=== PATIENT | male | born 1935 | race Caucasian/White ===

== ENCOUNTER 2018-06-08 12:37 | Outpatient (CLI) | payer MEDICARE, BC ==
[2018-06-08 14:10] LABS: Actual Bicarbonate (HCO3a) 34.3 mEq/L (22-28); Analyzer IN Cardio OR; Base Excess (BEa) 7.8 mEq/L (-2.0 to +3.0); CO2 Tension 57.7 mmHg (35.0-45.0); Calcium, Ionized 1.14 mmol/L (1.12-1.30); Hemoglobin (Hb) 11.3 g/dL (14.0-18.0); pH, Arterial 7.39 (7.35-7.45)
[2018-06-08 14:17] LABS: O2 Tension (PaO2) 50.4 mmHg (> 60.0)
[2018-06-08 14:18] LABS: ALV-art Gradient 77.115 (0-20)
== END 2018-06-08 12:38 | disposition home or self-care (01) ==
LOC: CP 12:37
PROVIDERS: ATTEND Internal Medicine
DX: I26.99 Other pulmonary embolism without acute cor pulmonale (principal)
CPT/HCPCS: 82805

== ENCOUNTER 2018-06-13 20:07 | Emergency (ER) | payer MEDICARE, BC ==
--- NOTE | 2018-06-13 21:21 | RAD ---
RIGHT SHOULDER THREE VIEWS: HISTORY: Fall. Pain. COMPARISON: None. FINDINGS: There is mild bone demineralization of the proximal left humerus. No bony fracture. No periosteal r eaction. IMPRESSION: Irregular appearance of the proximal left humerus. There appear to be patchy areas of lucency. Dedi cated left humeral radiograph is recommended. POS: [facility]
--- NOTE | 2018-06-13 21:59 | CT ---
HEAD CT WITHOUT CONTRAST: HISTORY: The patient fell. COMPARISON: 12/23/2003 FINDINGS: No parenchymal hemorrhage. No extraaxial hematoma. No midline shift. the basilar cisterns are maki nt. Age appropriate atrophy. Cortical post white matter differentiation is preserved. The ventricles and sulci are patent and symmetric. Adequate aeration of the sinuses and mastoid air cells. The calvarium is intact. Chronic small vessel ischemic changes of the white matter are noted. IMPRESSION: No intracranial posttraumatic sequelae. POS: [facility]
--- NOTE | 2018-06-13 22:20 | CT ---
CT CERVICAL SPINE: HISTORY: Fall. COMPARISON: None. FINDINGS: No craniocervical dislocation. The lateral masses of C1 and C2, as well as the facets, have appropri ate articulation. Soft tissue neck structures are unremarkable. There is atherosclerosis of the left and right common carotid arteries. The upper mediastinum is unremarkable. There appear to be extensive chronic changes in the visualize d lung apices. Emphysematous changes are identified. There is a nonspecific, well circumscribed, ro und nodule in the right upper lobe, measuring 0.7 x 0.8 cm. There are varying degrees of central canal stenosis and foraminal narrowing on the basis of degenerat michael change. There is at least moderate to severe central canal stenosis throughout multiple levels, in terms of the neural foramina. There is right greater than left facet hypertrophy. At least mild to moderate central canal stenosis on the basis of degenerative change. Evaluation is limited by elvis hnique. There is no prevertebral soft tissue swelling. Cervical spine vertebral body height is maintained. There is no definite fracture. Nonspecific hypo dense/lucent focus involving the anterior left aspect of the T1 vertebral body. The lesion measures 0.8 x 0.9 cm. There is diffuse bone demineralization. IMPRESSION: 1. No fracture. 2. Degenerative changes with varying degrees of central canal stenosis and foraminal narrowing, as a elise. 3. Possible lucent focus involving the anterior left aspect of T1. 4. Diffuse bone demineralization. POS: [facility]
--- NOTE | 2018-06-13 22:21 | RAD ---
TWO VIEW CHEST: INDICATIONS: Fall with chest injury. Pain. FINDINGS: There is a pleural-based density at the inferior right chest. Mild blunting of the left costophrenic sulcus is present. There is mild prominence of the cardiac silhouette. Post surgical changes of th e mediastinum and left-sided AICD are again noted. IMPRESSION: 1. Mild to moderate right pleural fluid. 2. Grossly stable pleural-based irregularity at the inferior left chest. 3. There is no discrete pneumothorax. POS: [facility]
--- NOTE | 2018-06-13 22:34 | RAD ---
LEFT HUMERUS TWO VIEWS: INDICATIONS: Injury. Fall. Pain. FINDINGS: There is scattered degenerative change without fracture or dislocation. IMPRESSION: No acute fracture of the left humerus. POS: [facility]
--- NOTE | 2018-06-14 | RAD ---
LEFT SCAPULA SERIES: INDICATIONS: Pain related to fall and injury. TECHNIQUE: Three views provided. FINDINGS: The scapula is not well assessed, as portions are obscured by a cardiac pacing battery pack. Where v isualized, there is no significant fracture displacement seen. There is degenerative change at the g lenohumeral joint. Minimal cortical irregularity without significant displacement is seen at the low er aspect of the scapula. IMPRESSION: No evidence of a significantly displaced fracture. There is minimal cortical irregularity at the inf erior aspect of the left scapula, nonspecific. POS: [facility]
== END 2018-06-13 23:12 | disposition home or self-care (01) ==
LOC: ERS 20:07
DX: S40.212A Abrasion of left shoulder, initial encounter (principal); S20.412A Abrasion of left back wall of thorax, initial encounter; I50.9 Heart failure, unspecified; J44.9 Chronic obstructive pulmonary disease, unspecified; Z87.891 Personal history of nicotine dependence; Z79.899 Other long term (current) drug therapy; Z79.01 Long term (current) use of anticoagulants; W18.30XA Fall on same level, unspecified, initial encounter
CPT/HCPCS: 70450; 71046; 72125

== ENCOUNTER 2018-06-16 13:50 | Inpatient (IN) | payer MEDICARE, BC ==
[~2018-06-16 13:50] MED LIST: ISOVUE-370 76%-LOCM 1 ML ONE
[2018-06-16 14:41] LABS: #Eosinphils 0.1 thou/uL (0.0-0.7); #Lymphocytes 0.8 thou/uL (1.20-3.40); #Monocytes 0.5 thou/uL (0.11-0.59); #Neutrophils 4.9 thou/uL (1.40-6.50); %Basophils 0.3 % (0.0-1.0); %Eosinophils 0.8 % (0.0-10.0); %Lymphocytes 12.9 % (21.0-51.0); %Monocytes 8.5 % (0.0-10.0); %Neutrophils 77.5 % (42.0-75.0); Hemoglobin 9.2 g/dL (14.0-18.0); Mean Corpuscular HGB CONC 30.5 g/dL (32.0-36.0); Mean Corpuscular Hemoglobin 29.7 pg (27.0-31.0); Mean Corpuscular Volume 97.2 fL (78.0-98.0); Mean Platelet Volume 8.6 fL (7.4-10.4); Platelet Count 185 thou/uL (130-400); White Blood Cell (WBC) Count 6.3 thou/uL (4.8-10.8)
[2018-06-16] MEDS ORDERED: diphenhydrAMINE 50 MG CAP ONE (14:45)
--- NOTE | 2018-06-16 14:58 | RAD ---
PORTABLE CHEST: Date: 06/16/18 PROVIDED CLINICAL HISTORY: Dyspnea. FINDINGS: Comparison with 06/13/18. Cardiac silhouette remains enlarged. Elevation of the right hemidiaphragm persists. Vascular calcific ation, median sternotomy change, and left subclavian cardiac pacing device are redemonstrated. No shannon dence for pneumothorax. No definite focal consolidation. IMPRESSION: Stable radiographic appearance of the chest. POS: [facility]
[2018-06-16 15:01] LABS: ALT (SGPT) 9 U/L (8-55); AST (SGOT) 17 U/L (5-34); Alkaline Phosphatase 73 U/L (40-150); BUN (Urea Nitrogen) 50 mg/dL (8.4-25.7); Bilirubin, Total 1.3 mg/dL (0.2-1.2); Calc. Creatinine Clearance 0 mL/min (70-130); Calcium 9.5 mg/dL (7.8-10.44); Estimated GFR-MDRD 35; Globulin 3.5 g/dL (2.4-3.5); Glucose 139 mg/dL (83-110); Magnesium 2.4 mg/dL (1.6-2.6); Protein, Total 7.5 g/dL (5.8-8.1)
[2018-06-16 15:05] LABS: Troponin I 0.055 ng/mL (< 0.028)
[2018-06-16 15:11] LABS: Anion Gap 15 mmol/L (10-20); Carbon Dioxide 35 mmol/L (23-31); Chloride 93 mmol/L (98-107); Potassium 5.1 mmol/L (3.5-5.1); Sodium 138 mmol/L (136-145)
--- NOTE | 2018-06-16 16:19 | CT ---
CT ANGIOGRAM OF THE CHEST: HISTORY: Dyspnea. Increased weakness. COMPARISON: None. TECHNIQUE: CT angiogram of the chest is performed in the axial plane. Three-dimensional reformatted images were submitted for interpretation. FINDINGS: There are nonspecific bilateral soft tissue neck lymph nodes. No mediastinal mass, lymphadenopathy, or hematoma. Heart size is enlarged. No significant pericardi al fluid. There are coronary artery calcifications. Atherosclerosis of a nonaneurysmal aorta. Reflux of contrast suggests right heard failure. The visualized upper solid organs are grossly unrem arkable. Hypodensity adjacent to the right hepatic lobe of the liver may be associated with a right kidney, evaluation is incomplete. The trachea and central bronchi are patent. Emphysematous changes in both upper lobes. Areas of sca r and atelectasis in both upper lobes. Nonspecific nodule on the lateral aspect of the right upper l obe measuring 0.6 x 0.5 cm. Dependent atelectatic changes. Additional atelectasis in the middle lob e and right lower lobe. There is mild elevation of the right hemidiaphragm. There is a right-sided pleural effusion. There is also evidence of perihepatic fluid. Adequate contrast opacification of the pulmonary arterial system to the level of the segmental arteri es. No filling defect to suggest thromboembolism. No lytic or blastic lesions in the osseous structures. IMPRESSION: 1. Lung parenchymal changes as described above. Emphysema involves both upper lobes. 2. A 6 mm nodule in the right upper lobe. Depending on patient's risk fractures, followup imaging i n 6-12 months is recommended. POS: [facility]
[2018-06-16] MEDS ORDERED: Furosemide 40 MG/4 ML VIAL ONE (17:10)
[2018-06-16] MEDS ORDERED: Guaifenesin DM 100-10/5 ML UDCUP PO PRN (18:25)
[2018-06-16] MEDS ORDERED: Acetaminophen 325 MG TAB PO PRN (18:25)
[2018-06-16 19:53] VITALS: BMI 28.3
--- NOTE | 2018-06-16 20:11 | HP ---
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 HISTORY OF PRESENT ILLNESS: Please note majority of this history is obtained by talking to patient's who is here at bedside as patient does not recollect anything. He wants me to talk to his to get all the information. He is currently mildly short of breath. The patient was hospitalized in April of this year at [facility] for CHF exacerbation. He was there for nearly 8 days. The patient also likely had a VQ scan and was suspected to have a PE and was started on Xarelto then. From there, he went to rehab for 10 days and then went home with PT and speech therapy. On Wednesday, he had a fall and had come to the emergency room and has had trauma protocol imaging done with no fractures and was discharged home. From then on, he has become more deconditioned. Home health nurse tried to make him walk today and his saturations dropped down to 50%. All of this concerned them and made it to the emergency room here. He has no complaints of chest pain at present. No complaints of palpitations or PND. The patient apparently has chronic edema in lower extremities from at least 4-5 years or so. He has had IVC filter placed in 07/[address] Landers. PAST MEDICAL AND SURGICAL HISTORY: History of CHF, COPD, emphysema, chronic dysphagia, defibrillator pacemaker, history of renal cell cancer with right nephrectomy done at [facility], this was done in 07/2017. Prior to surgery, he had a round of chemo, which did not seem to help him. TURP, cataract surgery , knee surgery, cholecystectomy, has had a CABG for 4-vessel disease done 12 years back. Has had IVC filter placed in 07/2017. PRIMARY INDUSTRIAL ORGANIZATIONAL PSYCHOLOGIST: Bahman Arellano M.D. PRIMARY UROLOGIST: Camilo Ledesma M.D. CURRENT MEDICATIONS: The patient is on atorvastatin 10 mg p.o. daily, K-Dur 10 mEq p.o. daily, aspirin 81 mg p.o. daily, Niacin 500 mg p.o. daily, magnesium oxide daily, Xarelto 15 mg daily, metoprolol extended release 25 mg daily, Lasix 40 mg twice daily, Ultram p.r.n. for pain. ALLERGIES: IODINE. PERSONAL HISTORY: Quit smoking 27 years ago, was a heavy smoker before that and smoked for 30 years. Does not abuse alcohol or drugs. FAMILY HISTORY: Mother in her 80s. Father in his 70s. CODE STATUS: DNR. This was confirmed with at bedside, who is also power of assistant county attorney for him. REVIEW OF SYSTEMS: The following complete review of systems was negative, unless otherwise mentioned in the HPI or below: Constitutional: Weight loss or gain, ability to conduct usual activities. Skin: Rash, itching. Eyes: Double vision, pain. ENT/Mouth: Nose bleeding, neck stiffness, pain, tenderness. Cardiovascular: Palpitations, dyspnea on exertion, orthopnea. Respiratory: Shortness of breath, wheezing, cough, hemoptysis, fever or night sweats. Gastrointestinal: Poor appetite, abdominal pain, heartburn, nausea, vomiting, constipation, or diarrhea. Genitourinary: Urgency, frequency, dysuria, nocturia. Musculoskeletal: Pain, swelling. Neurologic/Psychiatric: Anxiety, depression. Allergy/Immunologic: Skin rash, bleeding tendency. PHYSICAL EXAMINATION: GENERAL: The patient is an 82-year-old male who is currently not in any acute distress. VITAL SIGNS: Blood pressure 104/60, pulse 76 per minute, respiratory rate 20 per minute, temperature 98.7 degrees Fahrenheit, saturating 86% on 3 liters oxygen on arrival. Currently, he is saturating 93% on 3 liters. He has received Lasix 40 mg IV in the ER. NECK: Supple. There is mild elevation in JVD. HEENT: Eyes: Extraocular muscles intact. Pupils reacting to light. Oral cavity mucous membranes are dry. No exudates or congestion. CARDIOVASCULAR: S1, S2 heard. Regular rhythm. RESPIRATORY: Air entry 1+ bilateral. Scattered rales plus bilateral. ABDOMEN: Soft, bowel sounds heard. No tenderness, rigidity or guarding. There is abdominal wall edema in the lower quadrants extending all the way to the toes. EXTREMITIES: Massive peripheral edema. Has a compression sleeve. No calf tenderness. VASCULAR: Peripheral pulses 1+ bilateral. No ischemic ulcerations or gangrene. CENTRAL NERVOUS SYSTEM: The patient is awake and alert, but is not fully oriented. PSYCHIATRIC: No obvious hallucinations or delusions. LABORATORY AND X-RAY FINDINGS: White count of 6, H&H 9 and 30, platelet count 185, MCV is 97 with 77% neutrophils. Serum bicarbonate 35, BUN 50, creatinine 1.8, serum glucose 139, total bilirubin 1.3. Troponin I 0.05. BNP is 1026, albumin is 4.0. CT angio chest done shows no obvious PE up to the level of segmental arteries. Emphysema seen in both upper lobes. CLINICAL IMPRESSION AND PLAN: The patient will be admitted to telemetry for acute congestive heart failure exacerbation, chronic obstructive pulmonary disease exacerbation, acute kidney injury, acute hypoxic respiratory failure. He will be on Lasix 40 mg IV q.12 hourly along with aspirin, Lipitor, small dose of Coreg twice daily, DuoNebs, prednisone 40 mg daily. We will continue Xarelto 20 mg daily. We will obtain ultrasound of the inferior vena cava to see if the IVC filter is clogged up with lower extremity edema. Echo with 2D Doppler for LV function. We will also obtain a TSH in the morning. His albumin is 4 and his edema is unlikely secondary to hypoalbuminemia. His overall prognosis is guarded. I have given complete updates to patient's at bedside. [facility]
[2018-06-16] MEDS: Atorvastatin Calcium 10 MG TAB PO SCH (21:23)
[2018-06-16] MEDS: Niacin 500 MG TAB PO SCH (21:23)
[2018-06-16] MEDS: Famotidine 20 MG TAB PO SCH (21:24)
[2018-06-16] MEDS: Carvedilol 3.125 MG TAB PO SCH (21:24)
[2018-06-17 05:43] LABS: BUN (Urea Nitrogen) 49 mg/dL (8.4-25.7); Calc. Creatinine Clearance 48 mL/min (70-130); Calcium 9.3 mg/dL (7.8-10.44); Estimated GFR-MDRD 43; Glucose 103 mg/dL (83-110)
[2018-06-17 05:47] LABS: #Eosinphils 0.1 thou/uL (0.0-0.7); #Lymphocytes 0.8 thou/uL (1.20-3.40); #Monocytes 0.6 thou/uL (0.11-0.59); #Neutrophils 3.9 thou/uL (1.40-6.50); %Basophils 0.3 % (0.0-1.0); %Eosinophils 1.9 % (0.0-10.0); %Lymphocytes 15.4 % (21.0-51.0); %Monocytes 10.4 % (0.0-10.0); Hemoglobin 8.5 g/dL (14.0-18.0); Mean Corpuscular Hemoglobin 30.2 pg (27.0-31.0); Mean Corpuscular Volume 97.5 fL (78.0-98.0); Platelet Count 154 thou/uL (130-400); RBC Distribution Width 18.7 % (11.5-14.5); Red Blood Cell (RBC) Count 2.82 mill/uL (4.70-6.10); White Blood Cell (WBC) Count 5.4 thou/uL (4.8-10.8)
[2018-06-17 05:52] LABS: Anion Gap 13 mmol/L (10-20); Carbon Dioxide 35 mmol/L (23-31); Chloride 93 mmol/L (98-107); Potassium 4.5 mmol/L (3.5-5.1); Sodium 136 mmol/L (136-145)
[2018-06-17] MEDS: Furosemide 40 MG/4 ML VIAL SLOW IVP SCH ×2 (06:04→13:34)
[2018-06-17] MEDS: predniSONE 20 MG TAB PO SCH (09:16)
[2018-06-17] MEDS: Carvedilol 3.125 MG TAB PO SCH ×2 (09:18→21:38)
--- NOTE | 2018-06-17 10:55 | ULT ---
LIMITED ULTRASOUND IVC: DATE: 06/17/2018. HISTORY: Occlusion of IVC. History of IVC filter. FINDINGS: The mid IVC is obscured due to shadowing from bowel gas. Visualized portions of the proximal as well as lower IVC demonstrate flow on color flow and Doppler evaluation. While the mid IVC is not well s een on sahni scale imaging, color flow evaluation in the expected location of the IVC does demonstrate what appears to be flow in the mid IVC. IMPRESSION: Limited evaluation of the inferior vena cava, but Doppler evaluation as well as color flow evaluation does suggest flow although color flow evaluation was unable to be evaluated involving the mid inferi or vena cava due to shadowing from bowel gas. Sahni scale image is also limited, and thrombus within the inferior vena cava could not be excluded based on this examination. CT with IV contrast would be the better study of choice for evaluation of inferior vena cava thrombus or occlusion. POS: [facility]
--- NOTE | 2018-06-17 11:57 | PDOC.PN ---
- Subjective Encounter Start Date: 06/17/18 Encounter Start Time: 10:15 Subjective: is sitting up, trying to work with PT -: no sob, feels better -: is moving all extremities - Objective Resuscitation Status: Resuscitation Status DNR:Do Not Resuscitate MAR Reviewed: Yes Vital Signs & Weight: Vital Signs (12 hours) Temp Pulse Resp BP BP BP Pulse Ox 06/17/18 10:12 115/55 L 112/56 L 06/17/18 08:00 98.4 F 68 17 121/57 L 93 L 06/17/18 06:22 73 15 94 L 06/17/18 03:41 98.1 F 73 20 105/61 97 06/17/18 00:37 67 14 95 Weight Weight 208 lb 8 oz Result Diagrams: 06/17/18 05:09 06/17/18 05:09 Phys Exam - Physical Examination HEENT: PERRLA, moist MMs Neck: no JVD, supple Respiratory: no wheezing, no rales Cardiovascular: RRR, no significant murmur Gastrointestinal: soft, non-tender, positive bowel sounds Musculoskeletal: pulses present, edema present Neurological: non-focal, moves all 4 limbs Psychiatric: normal affect, A&O x 3 Dx/Plan (1) Acute exacerbation of CHF (congestive heart failure) Code(s): I50.9 - HEART FAILURE, UNSPECIFIED Status: Acute Qualifiers: Heart failure type: unspecified Qualified Code(s): I50.9 - Heart failure, unspecified (2) COPD exacerbation Code(s): J44.1 - CHRONIC OBSTRUCTIVE PULMONARY DISEASE W (ACUTE) EXACERBATION Status: Acute (3) BETO (acute kidney injury) Code(s): N17.9 - ACUTE KIDNEY FAILURE, UNSPECIFIED Status: Acute (4) Lower extremity edema Code(s): R60.0 - LOCALIZED EDEMA Status: Chronic (5) Dyslipidemia Code(s): E78.5 - HYPERLIPIDEMIA, UNSPECIFIED Status: Chronic (6) h/o right nephrectomy Status: Chronic Comment: for renal cancer (7) CAD (coronary artery disease) Code(s): I25.10 - ATHSCL HEART DISEASE OF [place] CORONARY ARTERY W/O ANG PCTRS Status: Chronic Qualifiers: Coronary Disease-Associated Artery/Lesion type: bypass graft [place] vs. transplanted heart: [place] heart Associated angina: without angina Qualified Code(s): I25.810 - Atherosclerosis of coronary artery bypass graft(s) without angina pectoris (8) Physical deconditioning Code(s): R53.81 - OTHER MAL[place]ISE Status: Acute (9) Demand ischemia of myocardium Code(s): I24.8 - OTHER FORMS OF ACUTE ISCHEMIC HEART DISEASE Status: Acute - Plan likely has ivc thrombosis with lower extre edema -: usg ivc not confirmatory for above, had contrast yesterday for another CT -: beto, respiratory failure with hypoxia has improved -: continue xarelto, lasix, aspirin. PT to mobilize as tolerated -: asp, coreg and lipitor. No lupillo/arb's due to beto/ckd? * . Prefer a long zain hose than his compression sleeve. Review of Systems - Medications/Allergies Allergies/Adverse Reactions: Allergies Allergy/AdvReac Type Severity Reaction Status Date / Time Iodinated Contrast- Oral and Allergy Verified 06/17/18 00:42 IV Dye [Iodinated Contrast Media - IV Dye] Medications: Current Medications Acetaminophen (Tylenol) 650 mg PO Q4H PRN PRN Reason: Headache/Fever/Mild Pain (1-3) Albuterol/Ipratropium (Duoneb) 3 ml NEB [id number] [facility] Last Admin: 06/17/18 06:22 Dose: 3 ml Aspirin (Aspirin Chewable) 81 mg PO DAILY [facility] Last Admin: 06/17/18 09:18 Dose: 81 mg Atorvastatin Calcium (Lipitor) 10 mg PO QPM [facility] Last Admin: 06/16/18 21:23 Dose: 10 mg Carvedilol (Coreg) 3.125 mg PO BID [facility] Last Admin: 06/17/18 09:18 Dose: 3.125 mg Famotidine (Pepcid) 20 mg PO QPM [facility] Last Admin: 06/16/18 21:24 Dose: 20 mg Furosemide (Lasix) 40 mg SLOW IVP 0600,1400 [facility] Last Admin: 06/17/18 06:04 Dose: 40 mg Guaifenesin/Dextromethorphan (Robitussin Dm) 15 ml PO Q4H PRN PRN Reason: Cough Niacin (Niacin) 500 mg PO HS [facility] Last Admin: 06/16/18 21:23 Dose: 500 mg Prednisone (Prednisone) 40 mg PO DAILY [facility] Last Admin: 06/17/18 09:16 Dose: 40 mg Rivaroxaban (Xarelto) 20 mg PO 1800 [facility]
--- NOTE | 2018-06-17 12:37 | CON ---
DATE OF CONSULTATION: 06/17/2018 CONSULTING PHYSICIAN: Dr. Pepper REASON FOR CONSULTATION: Evaluation and management of COPD and hypoxemia. HISTORY OF PRESENT ILLNESS: Mr. Gordon is a pleasant 82-year-old male who was brought into the [facility] yesterday with hypoxemia and shortness of breath that have been occurring increasingly over e 2 weeks prior to admission. He states that last week he was sent to the hospital to have a blood g as drawn because he had become increasingly hypoxemic with exertion. He has been on home oxygen for a couple of months. He was hospitalized in [facility] in April for knee replacement surgery, b ut was felt to be in heart failure at that time and his knee surgery was deferred until his heart pato lugina came under control. He was eventually sent to rehab before going home. I do not have records a bout his cardiac status, but from what I can tell he probably has severe congestive heart failure. H luther has difficulty with peripheral edema and apparently does not adhere to fluid restriction at home. The patient smoked quite heavily, but quit about 27 years ago. He has never been told he had COPD in the past, but it is suspected that he probably does. His had set him up an outpatient appointm ent to see Dr. Harris in a couple weeks, but the patient has never seen a entry specialists in the past. PAST MEDICAL HISTORY: 1. Congestive heart failure. 2. Chronic hypoxemia. 3. Renal cell cancer requiring right nephrectomy. 4. Coronary artery disease requiring coronary bypass grafting surgery. 5. Deep venous thrombosis with IVC filter placed in 07/2017. Apparently, he was scheduled to have s urgery and he was felt to high of a bleeding risk to continue on anticoagulation in the perioperative period. PAST SURGICAL HISTORY: 1. Nephrectomy. 2. Defibrillator placement. 3. Coronary artery bypass grafting surgery. 4. TURP. 5. Cholecystectomy. 6. Cataract surgery. MEDICATIONS PRIOR TO ADMISSION: Atorvastatin 10 mg daily, potassium chloride 10 mEq daily, aspirin 8 1 mg daily, niacin 500 mg daily, magnesium oxide daily, Xarelto 15 mg daily, metoprolol 25 mg daily, Lasix 40 mg twice daily, Ultram as needed. ALLERGIES: IODINE. SOCIAL HISTORY: See above. Does not consume alcohol, does not use illicit drugs. 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 REVIEW OF SYSTEMS: He has had difficulty with peripheral edema. Left shoulder pain, shortness of br eath. The remainder of the 12 point review of systems is negative. PHYSICAL EXAMINATION: VITAL SIGNS: Temperature 98.4, pulse 68, respirations 17, O2 sat 93% on 3 liters. GENERAL: He is lying in bed, looks comfortable. HEENT: Pupils are reactive. Sclerae icteric. Oropharynx clear. NECK: No adenopathy, JVD, or bruits. LUNGS: He has mild inspiratory crackles at both bases, some dullness to percussion at the right base . CARDIAC: S1, S2 regular without audible murmur. He has a defibrillator in place in the left upper q uadrant chest. ABDOMEN: Soft, nontender, without hepatosplenomegaly. EXTREMITIES: No clubbing, cyanosis. He has edema around his ankles and towards the posterior aspect of both thighs. His chest x-ray shows a small right pleural effusion, he has cardiomegaly, defibrillator is obvious. He has cephalization of flow. LABORATORY DATA: ABG from 06/08/2018 demonstrated pH of 7.39, pCO2 of 57, pO2 of 50 and that was on 2 liters. Sodium 136, potassium 4.5, chloride 93, CO2 35, BUN 49, creatinine 1.6, glucose 103. BNP 1026. TSH 0.8. White blood cell count 5.4, hemoglobin 8.5, hematocrit 27.5, platelet count 154. ASSESSMENT: 1. Hypoxemia, which is likely secondary to longstanding congestive heart failure with the developmen t of effusions and pulmonary edema. There may be some component of chronic obstructive pulmonary dis ease with this, but that has not been worked up in the past. 2. Question of underlying chronic obstructive pulmonary disease. 3. History of deep venous thrombosis in the past. 4. Chronically anticoagulated. 5. History of renal cell carcinoma requiring nephrectomy and now with development of renal insuffici ency secondary to his nephrectomy. 6. Likely severely decreased ejection fraction. RECOMMENDATIONS: 1. The patient will need pulmonary function test done as an outpatient. The soonest he could get th at done in the hospital would be next Wednesday and I would assume he is probably going home prior to t hen. 2. I agree with diuresis. 3. He has home oxygen in place. Therefore, does not need further orders for that. 4. Continue anticoagulation. 5. Consider workup for anemia as in my opinion that has not been explained. If his anemia is due to his renal insufficiency that he may need to start on Procrit. 6. Cardiology evaluation. 7. I do not see a real purpose behind the steroids, so I would recommend stopping those if okay with all physicians involved in the case. 8. Nebulization therapy as needed. The above encompassed 70 minutes of time, of that time greater than 50% was spent with the patient or on the patient's unit in the hospital.
--- NOTE | 2018-06-17 15:54 | CON ---
DATE OF CONSULTATION: 06/17/2018 HISTORY OF PRESENT ILLNESS: This patient is an 82-year-old gentleman with a history of an ischemic c ardiomyopathy, who presents with increasing dyspnea and lower extremity swelling and weakness. The p james has previously undergone coronary artery bypass graft surgery. He has had placement of an AIC D. The patient is followed by Dr. Arellano. The patient has been admitted on several occasions wit h congestive heart failure. He most recently was in [facility], scheduled to undergo k nee surgery and developed recurrent heart failure. The patient also has a history of DVT and has had placement of an IVC. The patient, for the past few days, has been extremely weak. He has felt shor t of breath and noticed increasing edema. The patient currently states he has been compliant with [facility] medications. PAST MEDICAL HISTORY: 1. Congestive heart failure. 2. Cardiomyopathy. 3. Coronary artery disease. 4. Hypertension. 5. History of pacemaker placement. 6. Renal cell carcinoma. PAST SURGICAL HISTORY: He had a TURP, cataract surgery, knee surgery, cholecystectomy, coronary trini ry bypass graft surgery, and a nephrectomy. MEDICATIONS: Xarelto 15 mg daily, metoprolol 25 XL daily, Lasix 40 b.i.d., aspirin 81 daily. SOCIAL HISTORY: He is a former smoker. ALLERGIES: He is allergic to IODINE. FAMILY HISTORY: No strong family history of coronary artery disease. REVIEW OF SYSTEMS: Ten-point system, otherwise, unremarkable except for noticing increasing dizzines s and lightheadedness. PHYSICAL EXAMINATION: GENERAL: This is a well-developed gentleman in mild distress. VITAL SIGNS: With a blood pressure of 118/56. NECK: Showed jugular venous distention to the jaw. LUNGS: Crackles are heard in the left lower lung field. HEART: Regular rate and rhythm, normal S1 and S2, 1/6 systolic murmur. ABDOMEN: Nondistended. EXTREMITIES: Show moderate bilateral edema. NEUROLOGIC EXAM: Nonfocal. VASCULAR: Radial pulses 2+. LABORATORY DATA: White blood cell count 5.4, hemoglobin 8.5, hematocrit 27.5, platelets 154. Sodium is 136, potassium 4.5, chloride 93, bicarbonate 35, BUN 49, creatinine is 1.56. His EKG revealed [facility] to have an electronic ventricular pacemaker. IMPRESSION: 1. Congestive heart failure. 2. Severe cardiomyopathy. 3. History of automatic implantable cardioverter-defibrillator placement. 4. History of deep venous thrombosis, status post IVC. 5. History of renal cell carcinoma. 6. Dyslipidemia. This gentleman presents with congestive heart failure. The patient is being diuresed with IV Lasix. We would add spironolactone. The patient is on a low dose of Coreg. We will try to obtain the caterina ent's records and list of medications from Dr. Arellano. We would add spironolactone. 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 We will follow with susana styles.
[2018-06-17] MEDS: Rivaroxaban 10 MG TAB PO SCH (17:22)
[2018-06-17] MEDS: Atorvastatin Calcium 10 MG TAB PO SCH (21:38)
[2018-06-17] MEDS: Niacin 500 MG TAB PO SCH (21:38)
[2018-06-17] MEDS: Famotidine 20 MG TAB PO SCH (21:39)
[2018-06-18] MEDS: Furosemide 40 MG/4 ML VIAL SLOW IVP SCH (05:26)
[2018-06-18 08:25] LABS: #Lymphocytes 0.8 thou/uL (1.20-3.40); #Monocytes 0.5 thou/uL (0.11-0.59); #Neutrophils 6.6 thou/uL (1.40-6.50); %Basophils 0.2 % (0.0-1.0); %Eosinophils 0.2 % (0.0-10.0); %Lymphocytes 10.1 % (21.0-51.0); %Monocytes 6.3 % (0.0-10.0); %Neutrophils 83.2 % (42.0-75.0); Hemoglobin 8.8 g/dL (14.0-18.0); Mean Corpuscular HGB CONC 30.5 g/dL (32.0-36.0); Mean Corpuscular Hemoglobin 29.5 pg (27.0-31.0); Mean Corpuscular Volume 96.9 fL (78.0-98.0); Mean Platelet Volume 8.4 fL (7.4-10.4); Platelet Count 167 thou/uL (130-400); RBC Distribution Width 18.8 % (11.5-14.5); Red Blood Cell (RBC) Count 2.99 mill/uL (4.70-6.10); White Blood Cell (WBC) Count 7.9 thou/uL (4.8-10.8)
[2018-06-18 08:55] LABS: BUN (Urea Nitrogen) 52 mg/dL (8.4-25.7); Calc. Creatinine Clearance 44 mL/min (70-130); Calcium 9.5 mg/dL (7.8-10.44); Estimated GFR-MDRD 39; Glucose 138 mg/dL (83-110); Iron 26 ug/dL (65-175); Iron Binding Capacity, Total 284 mcg/dL (261-462)
[2018-06-18 09:04] LABS: Anion Gap 17 mmol/L (10-20); Carbon Dioxide 34 mmol/L (23-31); Chloride 92 mmol/L (98-107); Potassium 4.2 mmol/L (3.5-5.1); Sodium 139 mmol/L (136-145)
[2018-06-18] MEDS: predniSONE 20 MG TAB PO SCH (09:09)
[2018-06-18] MEDS: Spironolactone 25 MG TAB PO SCH (09:12)
[2018-06-18] MEDS: Carvedilol 3.125 MG TAB PO SCH ×2 (09:12→20:50)
[2018-06-18] MEDS: hydrALAZINE 10 MG TAB PO SCH ×3 (09:12→20:50)
--- NOTE | 2018-06-18 12:35 | PDOC.PN ---
- Subjective Encounter Start Date: 06/18/18 Encounter Start Time: 11:00 Subjective: is sitting on bed, no sob or chest pain -: feels better - Objective Resuscitation Status: Resuscitation Status DNR:Do Not Resuscitate MAR Reviewed: Yes Vital Signs & Weight: Vital Signs (12 hours) Temp Pulse Resp BP BP Pulse Ox 06/18/18 09:12 70 138/62 06/18/18 08:00 98.1 F 86 18 138/62 99 06/18/18 03:18 97.9 F 70 16 125/61 94 L Weight Weight 207 lb 1 oz I&O: 06/17/18 06/18/18 06/19/18 06:59 06:59 06:59 Intake Total 780 Output Total 2100 Balance -1320 Result Diagrams: 06/18/18 08:02 06/18/18 08:02 Phys Exam - Physical Examination HEENT: PERRLA, moist MMs Neck: no JVD, supple Respiratory: no wheezing, no rales Cardiovascular: RRR, no significant murmur Gastrointestinal: soft, non-tender, positive bowel sounds Musculoskeletal: pulses present, edema present Neurological: non-focal, moves all 4 limbs Psychiatric: normal affect, A&O x 3 Dx/Plan (1) Acute exacerbation of CHF (congestive heart failure) Code(s): I50.9 - HEART FAILURE, UNSPECIFIED Status: Acute Qualifiers: Heart failure type: systolic Qualified Code(s): I50.23 - Acute on chronic systolic (congestive) heart failure Comment: ef of 25% (2) COPD exacerbation Code(s): J44.1 - CHRONIC OBSTRUCTIVE PULMONARY DISEASE W (ACUTE) EXACERBATION Status: Acute Comment: resolving (3) BETO (acute kidney injury) Code(s): N17.9 - ACUTE KIDNEY FAILURE, UNSPECIFIED Status: Acute (4) Lower extremity edema Code(s): R60.0 - LOCALIZED EDEMA Status: Chronic (5) Dyslipidemia Code(s): E78.5 - HYPERLIPIDEMIA, UNSPECIFIED Status: Chronic (6) h/o right nephrectomy Status: Chronic Comment: for renal cancer (7) CAD (coronary artery disease) Code(s): I25.10 - ATHSCL HEART DISEASE OF [place] CORONARY ARTERY W/O ANG PCTRS Status: Chronic Qualifiers: Coronary Disease-Associated Artery/Lesion type: bypass graft [place] vs. transplanted heart: [place] heart Associated angina: without angina Qualified Code(s): I25.810 - Atherosclerosis of coronary artery bypass graft(s) without angina pectoris (8) Physical deconditioning Code(s): R53.81 - OTHER [place]ISE Status: Acute (9) Demand ischemia of myocardium Code(s): I24.8 - OTHER FORMS OF ACUTE ISCHEMIC HEART DISEASE Status: Acute - Plan change lasix to oral, not sure if spironolactone will work with his current -: -creatinine, echo results noted, pt has aicd, ?MECHANICAL MAINTENANCE ENGINEER -: is wearing a zain hose with less edema in his thighs -: is actively participating with PT and has ambulated in hallway -: gave updates to pt and his , will not do another contrast CT * . Review of Systems - Medications/Allergies Allergies/Adverse Reactions: Allergies Allergy/AdvReac Type Severity Reaction Status Date / Time Iodinated Contrast- Oral and Allergy Verified 06/17/18 00:42 IV Dye [Iodinated Contrast Media - IV Dye] Medications: Current Medications Acetaminophen (Tylenol) 650 mg PO Q4H PRN PRN Reason: Headache/Fever/Mild Pain (1-3) Albuterol/Ipratropium (Duoneb) 3 ml NEB [id number] [facility] Last Admin: 06/18/18 09:47 Dose: Not Given Aspirin (Aspirin Chewable) 81 mg PO DAILY [facility] Last Admin: 06/18/18 09:09 Dose: 81 mg Atorvastatin Calcium (Lipitor) 10 mg PO QPM [facility] Last Admin: 06/17/18 21:38 Dose: 10 mg Carvedilol (Coreg) 3.125 mg PO BID [facility] Last Admin: 06/18/18 09:12 Dose: 3.125 mg Famotidine (Pepcid) 20 mg PO QPM [facility] Last Admin: 06/17/18 21:39 Dose: 20 mg Furosemide (Lasix) 40 mg PO 0900,1400 [facility] Guaifenesin/Dextromethorphan (Robitussin Dm) 15 ml PO Q4H PRN PRN Reason: Cough Hydralazine HCl (Apresoline) 10 mg PO TID [facility] Last Admin: 06/18/18 09:12 Dose: 10 mg Niacin (Niacin) 500 mg PO HS [facility] Last Admin: 06/17/18 21:38 Dose: 500 mg Prednisone (Prednisone) 40 mg PO DAILY [facility] Last Admin: 06/18/18 09:09 Dose: 40 mg Rivaroxaban (Xarelto) 20 mg PO 1800 [facility] Last Admin: 06/17/18 17:22 Dose: 20 mg Spironolactone (Aldactone) 25 mg PO QA[facility] Last Admin: 06/18/18 09:12 Dose: 25 mg
--- NOTE | 2018-06-18 14:51 | PRG ---
DATE OF SERVICE: 06/18/2018 SUBJECTIVE: He is about the same as he was yesterday. He says his breathing is reasonably well. PHYSICAL EXAMINATION: VITAL SIGNS: On exam, his temperature is 98.1, pulse 70, blood pressure 138/62, O2 sat 99% on 3 lite rs. HEENT: Unremarkable. NECK: No JVD. LUNGS: A few inspiratory crackles in the bases. CARDIAC: S1 and S2, regular. ABDOMEN: Soft. EXTREMITIES: Trace edema in the ankle region. LABORATORY DATA: White blood cell count 7.9, hematocrit 29, platelet count 167. Sodium 139, potassi um 4.2, chloride 92, CO2 of 34, BUN 52, creatinine 1.7, glucose 138. ASSESSMENT: 1. Hypoxemia secondary to congestive heart failure. 2. Question of concurrent chronic obstructive pulmonary disease. 3. History of deep vein thrombosis in the past. 4. History of renal cell carcinoma. PLAN: He is responding well to the oxygen and diuresis. His echo shows a fairly marked decrease in ejection fraction of 20%-25%. I would recommend continuing his diuretics and getting some PFTs as an outpatient. He may need home oxygen.
[2018-06-18] MEDS: Furosemide 20 MG TAB PO SCH (15:29)
[2018-06-18] MEDS: Rivaroxaban 10 MG TAB PO SCH (17:23)
[2018-06-18] MEDS: Famotidine 20 MG TAB PO SCH (20:50)
[2018-06-18] MEDS: Niacin 500 MG TAB PO SCH (20:50)
[2018-06-18] MEDS: Atorvastatin Calcium 10 MG TAB PO SCH (20:50)
[2018-06-19 05:40] LABS: #Lymphocytes 0.8 thou/uL (1.20-3.40); #Monocytes 0.5 thou/uL (0.11-0.59); #Neutrophils 7.7 thou/uL (1.40-6.50); %Basophils 0.1 % (0.0-1.0); %Eosinophils 0.1 % (0.0-10.0); %Lymphocytes 8.5 % (21.0-51.0); %Monocytes 5.2 % (0.0-10.0); %Neutrophils 86.1 % (42.0-75.0); Mean Corpuscular HGB CONC 30.5 g/dL (32.0-36.0); Mean Corpuscular Hemoglobin 29.5 pg (27.0-31.0); Mean Platelet Volume 8.4 fL (7.4-10.4); Platelet Count 184 thou/uL (130-400); RBC Distribution Width 18.9 % (11.5-14.5); Red Blood Cell (RBC) Count 3.04 mill/uL (4.70-6.10)
[2018-06-19 05:54] LABS: BUN (Urea Nitrogen) 48 mg/dL (8.4-25.7); Calc. Creatinine Clearance 50 mL/min (70-130); Calcium 9.2 mg/dL (7.8-10.44); Estimated GFR-MDRD 46; Glucose 183 mg/dL (83-110)
[2018-06-19 06:03] LABS: Anion Gap 15 mmol/L (10-20); Carbon Dioxide 36 mmol/L (23-31); Chloride 92 mmol/L (98-107); Potassium 4.2 mmol/L (3.5-5.1); Sodium 139 mmol/L (136-145)
[2018-06-19] MEDS ORDERED: predniSONE 5 MG TAB PO SCH (08:00)
[2018-06-19] MEDS ORDERED: hydrALAZINE 25 MG TAB PO SCH (09:00)
[2018-06-19] MEDS ORDERED: Furosemide 40 MG TAB PO SCH (09:00)
[2018-06-19] MEDS: Spironolactone 25 MG TAB PO SCH (09:03)
[2018-06-19] MEDS: Carvedilol 3.125 MG TAB PO SCH (09:05)
[2018-06-19 09:13] VITALS: BP 116/62; TEMP 98.3
[2018-06-19] MEDS: Furosemide 20 MG TAB PO SCH (09:13)
[2018-06-19] MEDS: hydrALAZINE 10 MG TAB PO SCH (09:13)
--- NOTE | 2018-06-19 10:37 | PDOC.PN ---
- Subjective Encounter Start Date: 06/19/18 Encounter Start Time: 09:50 Subjective: feels better, no sob or palpitations - Objective Resuscitation Status: Resuscitation Status DNR:Do Not Resuscitate MAR Reviewed: Yes Vital Signs & Weight: Vital Signs (12 hours) Temp Pulse Resp BP Pulse Ox 06/19/18 08:45 98.3 F 67 18 116/62 92 L 06/19/18 07:37 85 18 92 L 06/19/18 04:00 97.8 F 85 17 134/68 92 L Weight Weight 203 lb 11.2 oz I&O: 06/18/18 06/19/18 06/20/18 06:59 06:59 06:59 Intake Total 780 920 Output Total 2100 1140 Balance -1320 -220 Result Diagrams: 06/19/18 05:17 06/19/18 05:17 Phys Exam - Physical Examination HEENT: PERRLA, moist MMs Neck: no JVD, supple Respiratory: no wheezing, no rales Cardiovascular: RRR, no significant murmur Gastrointestinal: soft, non-tender, positive bowel sounds Musculoskeletal: pulses present, edema present Neurological: non-focal, moves all 4 limbs Dx/Plan (1) Acute exacerbation of CHF (congestive heart failure) Code(s): I50.9 - HEART FAILURE, UNSPECIFIED Status: Acute Qualifiers: Heart failure type: systolic Qualified Code(s): I50.23 - Acute on chronic systolic (congestive) heart failure Comment: ef of 25% (2) COPD exacerbation Code(s): J44.1 - CHRONIC OBSTRUCTIVE PULMONARY DISEASE W (ACUTE) EXACERBATION Status: Acute Comment: resolving (3) BETO (acute kidney injury) Code(s): N17.9 - ACUTE KIDNEY FAILURE, UNSPECIFIED Status: Acute (4) Lower extremity edema Code(s): R60.0 - LOCALIZED EDEMA Status: Chronic (5) Dyslipidemia Code(s): E78.5 - HYPERLIPIDEMIA, UNSPECIFIED Status: Chronic (6) h/o right nephrectomy Status: Chronic Comment: for renal cancer (7) CAD (coronary artery disease) Code(s): I25.10 - ATHSCL HEART DISEASE OF [place] CORONARY ARTERY W/O ANG PCTRS Status: Chronic Qualifiers: Coronary Disease-Associated Artery/Lesion type: bypass graft [place] vs. transplanted heart: [place] heart Associated angina: without angina Qualified Code(s): I25.810 - Atherosclerosis of coronary artery bypass graft(s) without angina pectoris (8) Physical deconditioning Code(s): R53.81 - OTHER [place] Status: Acute (9) Demand ischemia of myocardium Code(s): I24.8 - OTHER FORMS OF ACUTE ISCHEMIC HEART DISEASE Status: Acute - Plan d/w over phone, has incompass HH and will reactivate -: has been cleared by cardio -: to continue lasix, spironolactone, xarelto, asp and lipitor -: dc prednisone, renal function is holding -: dc pt home, to f/u with in 2 weeks. To continue zain dockery * . Review of Systems - Medications/Allergies Allergies/Adverse Reactions: Allergies Allergy/AdvReac Type Severity Reaction Status Date / Time Iodinated Contrast- Oral and Allergy Verified 06/17/18 00:42 IV Dye [Iodinated Contrast Media - IV Dye] Medications: Current Medications Acetaminophen (Tylenol) 650 mg PO Q4H PRN PRN Reason: Headache/Fever/Mild Pain (1-3) Albuterol/Ipratropium (Duoneb) 3 ml NEB [id number] [facility] Last Admin: 06/19/18 07:37 Dose: 3 ml Aspirin (Aspirin Chewable) 81 mg PO DAILY [facility] Last Admin: 06/19/18 09:03 Dose: 81 mg Atorvastatin Calcium (Lipitor) 10 mg PO QPM [facility] Last Admin: 06/18/18 20:50 Dose: 10 mg Carvedilol (Coreg) 3.125 mg PO BID [facility] Last Admin: 06/19/18 09:05 Dose: 3.125 mg Famotidine (Pepcid) 20 mg PO QPM [facility] Last Admin: 06/18/18 20:50 Dose: 20 mg Furosemide (Lasix) 40 mg PO DAILY [facility] Last Admin: 06/19/18 09:08 Dose: 40 mg Guaifenesin/Dextromethorphan (Robitussin Dm) 15 ml PO Q4H PRN PRN Reason: Cough Hydralazine HCl (Apresoline) 25 mg PO TID [facility] Last Admin: 06/19/18 09:08 Dose: 25 mg Niacin (Niacin) 500 mg PO HS [facility] Last Admin: 06/18/18 20:50 Dose: 500 mg Prednisone (Prednisone) 5 mg PO QAM-[facility] Last Admin: 06/19/18 09:03 Dose: 5 mg Rivaroxaban (Xarelto) 20 mg PO 1800 [facility] Last Admin: 06/18/18 17:23 Dose: 20 mg Spironolactone (Aldactone) 25 mg PO [facility] Last Admin: 06/19/18 09:03 Dose: 25 mg
--- NOTE | 2018-06-19 20:14 | DIS ---
DATE OF ADMISSION: 06/16/2018 DATE OF DISCHARGE: 06/19/2018 DISCHARGE DISPOSITION: To home. PRIMARY DISCHARGE DIAGNOSES: Acute on chronic congestive heart failure exacerbation with systolic dy sfunction and ejection fraction of around 25%; mild chronic obstructive pulmonary disease exacerbatio n, resolving; acute kidney injury, stable; chronic lower extremity edema likely due to thrombosis of IVC filter. SECONDARY DISCHARGE DIAGNOSES: History of coronary artery disease, dyslipidemia, history of right ne phrectomy for cancer, deconditioning, demand ischemia. PROCEDURES DONE DURING HOSPITALIZATION: CT angio chest done showed no evidence of PE. There is emph ysema seen in both upper lobes. Echo with 2D Doppler done showed an EF of 20%-25%. Inferior vena ca va ultrasound Doppler done showed flow through the IVC. The images were limited to assess for thromb us due to bowel gas. Blood cultures x2, no growth. H&H 9 and 29, platelet count 184, white count of 9. Discharge BUN and creatinine are 48 and 1.4. Vitamin B12 was 303, folic acid 14, ferritin was 4 1. Troponin I was indeterminate, peaking up to 0.07. BNP was 1026. Initial BUN and creatinine was 50 and 1.8. Albumin was 4. INPATIENT CONSULTATIONS: Dr. Ospina for Cardiology and Dr. Carias for Pulmonology. DISCHARGE MEDICATIONS: Atorvastatin 10 mg p.o. q.p.m., magnesium oxide 200 mg p.o. daily, Niacin 500 mg p.o. at bedtime, Xarelto 15 mg p.o. q.p.m., aspirin 81 mg p.o. daily, Coreg 3.125 mg p.o. twice d aily, Lasix 40 mg p.o. daily, hydralazine 25 mg p.o. 3 times daily, spironolactone 25 mg p.o. q.a.m. ALLERGIES: IODINE. DISCHARGE PLAN: The patient to follow up with Dr. Arellano in 2-3 weeks and primary care physician in 1 week. BRIEF COURSE DURING HOSPITALIZATION: The patient initially was brought to emergency room as he had s hortness of breath and had been falling at home. He was severely deconditioned. The patient's satur ation apparently dropped down to 50% at home when home health nurse came to check on him. He was ess entially admitted for CHF and COPD exacerbation. The patient had echo done, which showed ejection fr action of 25%. The patient has a history of prior nephrectomy with history of CKD and had acute kidn ey injury as well. He was gently diuresed and his renal function is holding up. He has chronic lowe r extremity edema and has prior history of IVC filter and likely the IVC filter is thrombosed. The p atient was on Xarelto and no further workup was done including contrast imaging to confirm the same. I have discussed this with the patient's , who did not want to worsen his renal function. Infer ior vena cava ultrasound Doppler has shown flow through the vena cava, but was not able to tell wheth er there was thrombus due to bowel gas obstructing view. His medications were optimized. He has amb ulated with physical therapy in the hallway. He is eating well and has home oxygen. His home health will be renewed with [facility]. He is hemodynamically stable and will be shortly discharged home. Please see a [id number] documentation [facility]
== END 2018-06-19 11:31 | disposition home health service (06) | DRG 291 ==
LOC: ERS 13:50 → 2NO 19:19
PROVIDERS: ADMIT Internal Medicine; ATTEND Internal Medicine
DX: I50.23 Acute on chronic systolic (congestive) heart failure (principal); J96.01 Acute respiratory failure with hypoxia; J44.1 Chronic obstructive pulmonary disease with (acute) exacerbation; N17.9 Acute kidney failure, unspecified; I24.8 Other forms of acute ischemic heart disease; Z99.81 Dependence on supplemental oxygen; I25.10 Atherosclerotic heart disease of native coronary artery without angina pectoris; E78.5 Hyperlipidemia, unspecified; Z90.5 Acquired absence of kidney; Z85.528 Personal history of other malignant neoplasm of kidney; Z91.048 Other nonmedicinal substance allergy status; Z91.81 History of falling; Z95.810 Presence of automatic (implantable) cardiac defibrillator; Z92.21 Personal history of antineoplastic chemotherapy; Z79.899 Other long term (current) drug therapy; Z79.82 Long term (current) use of aspirin; Z79.01 Long term (current) use of anticoagulants; Z87.891 Personal history of nicotine dependence; Z86.718 Personal history of other venous thrombosis and embolism; R53.81 Other malaise
CPT/HCPCS: 36415; 36416; 70450; 71045; 71046; 71275; 72125; 80048; 80053; 82607; 82728; 82746; 83540; 83550; 83735; 83880; 84443; 84484; 85025; 87040; 93005; 93306; 93798; 93978; 94640; 94760; 96374; G8978-GP-CK; G8979-GP-CJ; G8987-GO-CL; G8988-GO-CJ; J1940; J7506; J7620

== ENCOUNTER 2018-07-28 08:04 | Outpatient (CLI) | payer MEDICARE, BC ==
--- NOTE | 2018-07-28 08:26 | RAD ---
PA AND LATERAL CHEST: History: Dyspnea. FINDINGS/IMPRESSION: Comparison is made with exam of 12-21-17. There are changes of median sternotomy. The heart is enlarged. Left sided AICD remains in place. Ther e is blunting of the left costophrenic angle which may be due to a small effusion. No lobar consolida tion, pneumothoraces or quynh pulmonary edema is seen. There are degenerative changes of the spine. POS: KARLEY
== END 2018-07-28 08:05 | disposition home or self-care (01) ==
LOC: RAD 08:04
PROVIDERS: ATTEND Internal Medicine Critical Care Medicine
DX: R06.00 Dyspnea, unspecified (principal); I51.7 Cardiomegaly; M47.9 Spondylosis, unspecified; Z98.890 Other specified postprocedural states
CPT/HCPCS: 71046

== ENCOUNTER 2019-03-03 18:08 | Inpatient (IN) | payer MEDICARE, BC ==
[2019-03-03 18:25] LABS: #Eosinphils 0.2 thou/uL (0.0-0.7); #Lymphocytes 1.6 thou/uL (1.20-3.40); #Monocytes 0.7 thou/uL (0.11-0.59); #Neutrophils 5.8 thou/uL (1.40-6.50); %Basophils 0.4 % (0.0-1.0); %Eosinophils 2.3 % (0.0-10.0); %Lymphocytes 19.5 % (21.0-51.0); %Monocytes 8.2 % (0.0-10.0); %Neutrophils 69.6 % (42.0-75.0); Hemoglobin 10.4 g/dL (14.0-18.0); Mean Corpuscular HGB CONC 31.8 g/dL (32.0-36.0); Mean Corpuscular Hemoglobin 30.9 pg (27.0-31.0); Mean Corpuscular Volume 97.2 fL (78.0-98.0); Platelet Count 191 thou/uL (130-400); RBC Distribution Width 15.5 % (11.5-14.5); Red Blood Cell (RBC) Count 3.37 mill/uL (4.70-6.10); White Blood Cell (WBC) Count 8.3 thou/uL (4.8-10.8)
[2019-03-03] MEDS ORDERED: Atropine Sulfate 1 mg/10 ml Syringe ONE (18:26)
--- NOTE | 2019-03-03 18:30 | RAD ---
XR Chest 1 View Portable History: Fall Comparison: Chest radiograph July 28, 2018 Findings: Lungs are mildly hypoinflated. Heart size is enlarged. Defibrillator pad projects over the left hemithorax. No acute osseous abnormality. Bilateral rotator cuff arthropathy. Impression: Chronic findings. No acute intrathoracic abnormality.
--- NOTE | 2019-03-03 18:38 | RAD ---
XR Pelvis AP STANDARD History: Fall Comparison: None. Findings: Severe degenerative changes of both hips. There is a fracture of the right iliac wing. This is mild comminuted. Possible nondisplaced fractures of the right superior and inferior pubic rami. Severe degenerative disease lumbar spine. Impression: 1. Comminuted fracture right iliac wing separate from the SI joint. 2. Possible nondisplaced fractures of right superior and inferior pubic rami.
[2019-03-03 18:39] LABS: ALT (SGPT) 11 U/L (8-55); AST (SGOT) 16 U/L (5-34); Albumin 3.9 g/dL (3.4-4.8); Alkaline Phosphatase 81 U/L (40-150); Anion Gap 13 mmol/L (10-20); BUN (Urea Nitrogen) 30 mg/dL (8.4-25.7); Bilirubin, Total 0.5 mg/dL (0.2-1.2); CK (CPK) 53 U/L (30-200); Calc. Creatinine Clearance 0 mL/min (70-130); Calcium 9.5 mg/dL (7.8-10.44); Carbon Dioxide 25 mmol/L (23-31); Chloride 101 mmol/L (98-107); Estimated GFR-MDRD 46; Glucose 97 mg/dL (83-110); INR-International Normal Ratio 2.7; Lipase 23 U/L (8-78); Magnesium 1.5 mg/dL (1.6-2.6); PTT 39.7 SEC (22.9-36.1); Potassium 4.4 mmol/L (3.5-5.1); Protein, Total 6.9 g/dL (5.8-8.1); Prothrombin Time 28.6 SEC (12.0-14.7); Sodium 135 mmol/L (136-145)
[2019-03-03] MEDS ORDERED: Fentanyl 100 MCG/2 ML VIAL ONE ×2 (19:00→20:36)
[2019-03-03 19:03] LABS: CKMB 2.6 ng/mL (0-6.6)
--- NOTE | 2019-03-03 19:03 | RAD ---
XR Tib Fib Rt Leg 2 View History: Fall Comparison: None. Findings: No acute displaced fracture or malalignment. Old distal syndesmotic injury between the dist al tibia and fibula. Severe lateral compartment degenerative disease. Chondrocalcinosis. Bones are osteopenic. Impression: Chronic findings. No acute displaced fracture.
--- NOTE | 2019-03-03 19:03 | RAD ---
XR Knee Rt 4 View STANDARD History: Fall Comparison: None. Findings: Severe degenerative disease lateral compartment. Exam is limited due to technique. Moderate swelling anteriorly. No significant joint effusion. Bones are osteopenic. Impression: Soft tissue swelling without acute displaced fracture appreciated given the limits of thi s exam.
--- NOTE | 2019-03-03 19:06 | RAD ---
RIGHT HIP RADIOGRAPHS TWO VIEWS: 03/03/19 PROVIDED CLINICAL HISTORY: Pain status post fall. FINDINGS/IMPRESSION: Evaluation is limited by radiographic technique. Diffuse regional osteopenia. Vascular calcifications . No evidence for fracture or other acute osseous abnormality. If there is persistent clinical concer n, conservative management and follow-up imaging are advised. POS: GUILHERME
--- NOTE | 2019-03-03 19:08 | RAD ---
RIGHT ANKLE RADIOGRAPHS THREE VIEWS: 03/03/19 PROVIDED CLINICAL HISTORY: Pain status post injury. FINDINGS: No comparisons. Diffuse regional osteopenia. Sessile osteochondroma arises from the lateral aspect of the distal tib ial metaphyseal region. No definite evidence for fracture. Alignment appears anatomic. Joint spaces a ppear preserved. Vascular calcifications are seen. IMPRESSION: No evidence for an acute osseous abnormality. If there is persistent clinical concern, conservative m anagement and follow-up imaging are advised. POS: GUILHERME
[2019-03-03] MEDS ORDERED: Magnesium 2 GM/50 ML BAG (IN WATER) ONE (19:17)
--- NOTE | 2019-03-03 20:52 | CT ---
CT BRAIN 03/03/19 PROVIDED CLINICAL HISTORY: Fall. FINDINGS: Comparison 06/13/18. The ventricular system appears normal in size and morphology. There is no evidence for intracranial h emorrhage or mass effect. The extracranial soft tissues and osseous structures demonstrate no acute a bnormality. IMPRESSION: No evidence for intracranial hemorrhage or mass effect. POS: GUILHERME
--- NOTE | 2019-03-03 21:02 | CT ---
CT PELVIS 03/03/19 PROVIDED CLINICAL HISTORY: Pain status post fall. FINDINGS: There is a comminuted fracture involving the lateral aspects of the right iliac wing with displacemen t of the lateral fragments approximately 12 mm posteriorly maximally. There is stranding of the retro peritoneal fat right of midline in the posterior pararenal space. The right kidney is not included on this imaging volume. There is asymmetric enlargement of the right iliacus muscle likely reflecting muscular strain and/or intramuscular hematoma. No additional fracture is evident. Vascular calcifications are noted. Degenerative changes are seen. Fat containing and fluid containing right inguinal hernia. IMPRESSION: Comminuted right iliac wing fracture. Hematoma involving right iliacus muscle and partially visualize d hematoma involving the right posterior pararenal fat. POS: GUILHERME
[2019-03-03] MEDS ORDERED: Cyclobenzaprine 10 MG TAB PO PRN (21:34)
[2019-03-03] MEDS ORDERED: Dextrose 50% Abboject 50 ML SYRINGE SLOW IVP PRN (21:41)
[2019-03-03] MEDS ORDERED: Dextrose 5% in Water 1,000 ML IV PRN (21:41)
[2019-03-03] MEDS ORDERED: hydrALAZINE 20 MG/ML VIAL SLOW IVP PRN (21:41)
[2019-03-03] MEDS ORDERED: Morphine 4 MG/ML VIAL SLOW IVP PRN (21:41)
[2019-03-03] MEDS ORDERED: Ondansetron PF 4 MG/2 ML Vial IVP PRN (21:41)
[2019-03-03] MEDS ORDERED: Ondansetron ODT 4 MG TAB PO PRN (21:41)
[2019-03-03] MEDS ORDERED: traMADol HCl 50 MG TAB PO PRN (21:53)
[2019-03-03 21:59] LABS: Phosphorus 3.6 mg/dL (2.3-4.7)
[2019-03-03] MEDS ORDERED: Magnesium Sulfate 2 GM in Sodium Chloride 0.9% 100 ML IVPB SCH (22:00)
[2019-03-03 23:01] LABS: CKMB 2.9 ng/mL (0-6.6)
[2019-03-03 23:07] LABS: Bilirubin Negative (Negative); Blood, Urine Negative (Negative); Clarity CLEAR (Clear); Glucose, Urine (Dipstick) Negative (Negative); Leukocyte Negative (Negative); Nitrite Negative (Negative); Protein, Urine (Dipstick) Negative (Neg-Trace); Specific Gravity, Urine 1.015 (1.002-1.036); Urobilinogen 0.2 mg/dL (0.2-1.0)
[2019-03-03 23:11] LABS: Bacteria/HPF None Seen HPF (None Seen); Hyaline Casts/LPF 0-3 HYALINE CAST LPF (0-3 Hyaline); RBC/HPF 0-3 HPF (0-3); Squamous Epithelial 0-3 HPF (0-3); WBC/HPF 0-3 HPF (0-3)
[2019-03-04] MEDS: traMADol HCl 50 MG TAB PO SCH ×5 (00:07→22:48)
[2019-03-04] MEDS: Sodium Chloride 0.9% 1,000 ML IV SCH ×2 (00:09→09:19)
[2019-03-04] MEDS: Acetaminophen 1,000 MG in Premix Bag 1 BAG IVPB SCH ×4 (00:17→17:19)
[2019-03-04 03:05] VITALS: BMI 25.2
[2019-03-04 06:09] LABS: #Lymphocytes 0.8 thou/uL (1.20-3.40); #Monocytes 0.5 thou/uL (0.11-0.59); #Neutrophils 6.7 thou/uL (1.40-6.50); %Basophils 0.2 % (0.0-1.0); %Eosinophils 0.2 % (0.0-10.0); %Lymphocytes 10.1 % (21.0-51.0); %Monocytes 6.2 % (0.0-10.0); %Neutrophils 83.2 % (42.0-75.0); Hemoglobin 8.9 g/dL (14.0-18.0); Mean Corpuscular Hemoglobin 31.5 pg (27.0-31.0); Mean Corpuscular Volume 95.6 fL (78.0-98.0); Mean Platelet Volume 8.1 fL (7.4-10.4); Platelet Count 156 thou/uL (130-400); RBC Distribution Width 15.3 % (11.5-14.5); Red Blood Cell (RBC) Count 2.84 mill/uL (4.70-6.10); White Blood Cell (WBC) Count 8.1 thou/uL (4.8-10.8)
[2019-03-04 06:18] LABS: Anion Gap 10 mmol/L (10-20); BUN (Urea Nitrogen) 31 mg/dL (8.4-25.7); Calc. Creatinine Clearance 48 mL/min (70-130); Carbon Dioxide 30 mmol/L (23-31); Chloride 100 mmol/L (98-107); Estimated GFR-MDRD 52; Glucose 123 mg/dL (83-110); Potassium 5.2 mmol/L (3.5-5.1); Sodium 135 mmol/L (136-145)
[2019-03-04] MEDS ORDERED: Melatonin 3 MG TAB PO PRN (09:39)
[2019-03-04] MEDS: Spironolactone 25 MG TAB PO SCH (09:44)
[2019-03-04] MEDS: Ascorbic Acid 500 mg Chewable Tablet PO SCH ×2 (09:47→20:49)
[2019-03-04] MEDS: Escitalopram Oxalate 10 mg Tablet PO SCH (09:47)
[2019-03-04] MEDS: Senokot S 8.6-50 MG TAB PO SCH ×2 (09:47→20:49)
[2019-03-04] MEDS: Polyethylene Glycol 3350 17 GM Packet PO SCH (09:48)
--- NOTE | 2019-03-04 12:27 | EKG ---
Test Reason : Blood Pressure : / mmHG Vent. Rate : 090 BPM Atrial Rate : 090 BPM P-R Int : 000 ms QRS Dur : 134 ms QT Int : 410 ms P-R-T Axes : 000 070 -80 degrees QTc Int : 501 ms Demand pacemaker; interpretation is based on intrinsic rhythm Sinus rhythm with occasional Premature ventricular complexes Non-specific intra-ventricular conduction block Cannot rule out Septal infarct , age undetermined Marked T wave abnormality, consider anterolateral ischemia Abnormal ECG #1 Confirmed by WALKER SANCHEZ ([id number]), supervising editor news reel ALFREDO HAMILTON ([id number]) on 03/04/2019 12:27:21 PM Referred By: Confirmed By:WALKER SANCHEZ
--- NOTE | 2019-03-04 14:59 | PRG ---
DATE OF SERVICE: 03/04/2019 SUBJECTIVE: This is an 83-year-old gentleman, who had a mechanical fall with a history of multiple falls. The patient was evaluated in the emergency room and was found to have a slightly elevated troponin and unclear if the patient had a syncopal episode. The patient is hospital day #2, status post comminuted fracture, right iliac wing. The patient has been evaluated by Orthopedics, who determined that the patient is nonoperative. The patient is currently resting in the hospital bed. states that he did not rest well last night and he is finally able to get some sleep. OBJECTIVE: VITAL SIGNS: Temperature 97.3, pulse 80, respirations 18, SpO2 of 98% on 4 L, blood pressure 107/57. GENERAL: The patient resting, arouses easily, no acute distress. HEENT: Head is atraumatic, normocephalic. NECK: Supple. RESPIRATORY: No distress, equal chest rise and fall, clear breath sounds. CARDIAC: Paced rhythm, no pedal edema. EXTREMITIES: Moves all extremities. Pain to right hip. LABORATORY DATA: RBC 2.84, hemoglobin 8.9, hematocrit 27.1, WBC 8.9, platelets 156. Sodium 135, potassium 5.2, chloride 100, carbon dioxide 30, anion gap 10, BUN 31, creatinine 1.32, estimated GFR 53, glucose 123. Troponin at 0400 hours, 0.069, slight increase from yesterday. Initial was 0.059, second troponin 0.045. Urinalysis yesterday, unremarkable. IMPRESSION: 1. Multiple recent falls. 2. Deconditioning and generalized weakness. 3. Right iliac wing comminuted fracture, nonoperative. 4. Acute traumatic pain. 5. History of a pacemaker, coronary artery disease. 6. Acute on chronic kidney disease. 7. Episode of bradycardia, resolved. 8. History of Congestive heart failure with low EF. 9. COPD 10. Acute on chronic kidney disease present on admission. PLAN: We will place the patient on a cardiac diet. We will stop IV fluids. We will encourage physical and occupational therapy. We will place a rehab screen for continued physical and occupational therapy. Pending echo cardiogram results. The plan was discussed with the attending physician, who agrees. Job ID: [id number] [facility]
--- NOTE | 2019-03-04 15:37 | CON ---
DATE OF CONSULTATION: 03/04/2019 CHIEF COMPLAINT: Right hip pain. HISTORY OF PRESENT ILLNESS: Mr. Gordon is an 83-year-old male, who was at home yesterday. He was walking with his cane. He also uses a walker at home sometimes. He was turning to pivot when he lost his balance. He fell hard on his right hip. He had pain. He was unable to ambulate. He was taken to the emergency department for further evaluation. X-rays as well as CT scan of the pelvis were done, which demonstrated an iliac wing fracture. The patient thought he may have passed out, so he was admitted for syncope episode and workup. He is resting comfortably currently. He has had adequate pain control. Family is at the bedside. PAST MEDICAL HISTORY: 1. Pacemaker with defibrillator. 2. CHF. 3. COPD. PAST SURGICAL HISTORY: 1. Cardiac bypass surgery. 2. Pacemaker placement. 3. Cataracts. 4. Knee surgery. 5. TURP. 6. Cholecystectomy. 7. Right nephrectomy. PSYCHIATRIC HISTORY: Negative. SOCIAL HISTORY: The patient is with family. He denies tobacco, alcohol, or drug use. He lives independently. ALLERGIES: TO CODEINE AND IODINE. IMAGING STUDIES: Pelvis x-ray as well as pelvis CT scan demonstrated a right-sided iliac wing fracture with comminution. There is no significant displacement. The fracture does not seem to go into the joints. PHYSICAL EXAMINATION: VITAL SIGNS: Temperature is 97.3, pulse is 80, respiratory rate is 20, oxygen saturation of 98%, and blood pressure is 107/57. GENERAL: He is alert and oriented, in no apparent distress. RESPIRATORY: Breathing comfortably. ABDOMEN: Soft, nontender, and nondistended. MUSCULOSKELETAL: The patient's right lower extremity has pain with motion. Equal leg length. Minimal ecchymosis. Neurovascularly intact. IMPRESSION: An 83-year-old male status post fall with pelvic fracture including iliac wing. PLAN: At this point, the patient can be treated nonoperatively. He can weight bear as tolerated. He should use a walker and have support. He will likely need rehab placement. He is having an ongoing syncope workup. I would like to see the patient back in the orthopedic clinic in 1 month for x-rays to evaluate healing. Job ID: [id number]
--- NOTE | 2019-03-04 16:22 | HP ---
HISTORY OF PRESENT ILLNESS: Noe Gordon is an 83-year-old male, retired rancher from [place], lives here with his . The patient with his was at a [employer] restaurant, [email or web address]. The patient was entering the restaurant, looking over towards the bar, his had her back to him when the patient fell. The patient has a history of previous falls. The patient did not lose consciousness. The patient's was there immediately and noted him to be alert and oriented. The patient had pain and was brought to the hospital and evaluated with multiple evaluations. He was noted to have a chest x-ray that was unremarkable. Defibrillator left chest wall noted. He had x-rays of his ankle, leg, and knee; CAT scan of the brain; pelvis CAT scan; pelvis x-ray; and femur x-ray. The patient noted to have a comminuted right iliac wing fracture, hematoma involving the right iliacus muscle and a fat containing right inguinal hernia, possibly having on plain films suspect right superior-inferior pubic rami fracture, but not appreciated on CAT scan of pelvis. Femur x-ray right reveals osteopenia, but no evidence of femur fracture or tib-fib fracture. On the tib-fib x-ray, right, no evident fracture. CT scan of brain was unremarkable. X-rays of his right ankle unremarkable. The patient has been seen by orthopedics, Dr. Rowan, and rehab suggested, the is in agreement. ALLERGIES: IODINATED CONTRAST. SOCIAL HISTORY: Tobacco, none. Alcohol, none. MEDICATIONS: 1. Tylenol No. 3. 2. Melatonin. 3. Xarelto. 4. Atorvastatin. 5. Spironolactone. PAST MEDICAL HISTORY: The patient has a defibrillator. He has had coronary artery bypass grafting in the past. He is followed by Dr. Arellano, last having seen him 2 weeks ago. He had an echocardiogram. His reports he has baseline unremarkable. He has repeat echocardiogram being performed at this time. The patient currently does not reveal any other complaints. PHYSICAL EXAMINATION: Exam is as described by Fartun Carlson, nurse practitioner. ASSESSMENT AND PLAN: Right iliac wing fracture, contusions. Telemetry monitoring so far unremarkable. He has a defibrillator pacemaker. He has history of coronary artery disease, this is asymptomatic, being followed by Dr. Lammoglia. Anticoagulation has been held. Agree with plan per Fartun Carlson NP. Agree with plans for rehab evaluation. Job ID: [id number]
[2019-03-04] MEDS: Ferrous Sulfate 325 MG TAB PO SCH (17:15)
[2019-03-04] MEDS: Atorvastatin Calcium 10 MG TAB PO SCH (20:49)
[2019-03-05 04:06] LABS: #Eosinphils 0.1 thou/uL (0.0-0.7); #Lymphocytes 0.9 thou/uL (1.20-3.40); #Monocytes 0.5 thou/uL (0.11-0.59); #Neutrophils 5.8 thou/uL (1.40-6.50); %Basophils 0.5 % (0.0-1.0); %Eosinophils 1.4 % (0.0-10.0); %Lymphocytes 12.5 % (21.0-51.0); %Neutrophils 78.6 % (42.0-75.0); Hemoglobin 9.5 g/dL (14.0-18.0); Mean Corpuscular Hemoglobin 31.5 pg (27.0-31.0); Mean Corpuscular Volume 98.7 fL (78.0-98.0); Mean Platelet Volume 8.5 fL (7.4-10.4); Platelet Count 170 thou/uL (130-400); White Blood Cell (WBC) Count 7.4 thou/uL (4.8-10.8)
[2019-03-05 04:42] LABS: Anion Gap 11 mmol/L (10-20); BUN (Urea Nitrogen) 34 mg/dL (8.4-25.7); Calc. Creatinine Clearance 51 mL/min (70-130); Carbon Dioxide 29 mmol/L (23-31); Chloride 99 mmol/L (98-107); Estimated GFR-MDRD 55; Glucose 88 mg/dL (83-110); Magnesium 1.8 mg/dL (1.6-2.6); Phosphorus 4.8 mg/dL (2.3-4.7); Potassium 5.2 mmol/L (3.5-5.1); Sodium 134 mmol/L (136-145)
[2019-03-05] MEDS: traMADol HCl 50 MG TAB PO SCH (04:58)
[2019-03-05] MEDS ORDERED: Cyclobenzaprine 10 MG TAB PO PRN (08:26)
[2019-03-05] MEDS ORDERED: traMADol HCl 50 MG TAB PO SCH ×2 (08:30→14:00)
[2019-03-05] MEDS: Escitalopram Oxalate 10 mg Tablet PO SCH (08:58)
[2019-03-05] MEDS: Ascorbic Acid 500 mg Chewable Tablet PO SCH ×2 (08:58→21:20)
[2019-03-05] MEDS: Ferrous Sulfate 325 MG TAB PO SCH ×2 (08:58→16:34)
[2019-03-05] MEDS: Polyethylene Glycol 3350 17 GM Packet PO SCH (08:59)
[2019-03-05] MEDS: Senokot S 8.6-50 MG TAB PO SCH ×2 (08:59→21:20)
[2019-03-05] MEDS: Rivaroxaban 15 MG TAB PO SCH (09:01)
[2019-03-05] MEDS ORDERED: traMADol HCl 50 MG TAB PO PRN (09:46)
[2019-03-05] MEDS: Acetaminophen 500 MG TAB PO SCH ×3 (10:28→21:20)
[2019-03-05 15:07] LABS: Actual Bicarbonate (HCO3a) 30.7 mEq/L (22-28); Base Excess (BEa) 1.3 mEq/L (-2.0 to +3.0); Carboxyhemoglobin (COHb) 1.5 gm% (0.0-3.0); Hemoglobin (Hb) 9.9 g/dL (14.0-18.0); O2 Tension (PaO2) 91.2 mmHg (> 60.0); Potassium - ABG Lab 5.16 mmol/L (3.70-5.30)
[2019-03-05 15:09] LABS: CO2 Tension 80.8 mmHg (35.0-45.0)
[2019-03-05 15:10] LABS: Puncture Site RR
--- NOTE | 2019-03-05 15:52 | HP ---
ATTENDING TRAUMA SURGEON: Dr. Soriano. CONSULTS: Orthopedic Surgery, Dr. Rowan. HISTORY OF PRESENT ILLNESS: This is an 83-year-old gentleman, who was ambulating with a cane this evening when he was walking into a restaurant and states that he lost his balance and fell onto his right side. The patient normally uses either a walker or a cane to ambulate due to right knee issues. The patient has had multiple falls within the last year. The patient denies any chest pain, shortness of breath or dizziness prior to falling. The patient had no loss of consciousness. The patient does currently take Xarelto 15 mg as he was diagnosed with a DVT over a year ago. The patient was brought to the emergency room for evaluation by EMS. EMS reported bradycardia on the telemetry monitor as low as 26 and was given atropine. Again, the patient had no altered mental status or no loss of consciousness. The patient was evaluated in the emergency room and a pacemaker interrogation was also completed with no signs of bradycardia. There were episodes of PVCs. The patient was found to have a right iliac wing fracture and a superior-inferior pubic rami fracture. Dr. Rowan was consulted by the emergency room physician. The patient also had elevated troponin. The patient denies having a syncopal episode. PAST MEDICAL HISTORY: Right nephrectomy due to bladder cancer, open heart bypass, congestive heart failure, pacemaker and defibrillator, renal cell cancer with his right nephrectomy done at [facility] [place], July 2017. COPD, chemotherapy prior to right nephrectomy in 2016. Deep vein thrombosis, treated with Xarelto. PAST SURGICAL HISTORY: Right nephrectomy, TURP, cataract surgery, knee surgery, cholecystectomy, CABG, 4-vessel disease, IVC filter placed in July 2017. PRIMARY FABRIC CUTTER: Dr. Arellano. ALLERGIES: IODINE. SOCIAL HISTORY: Lives at home with his , uses a cane to ambulate, a 30-year smoker, quit 27 years ago, denies alcohol use, denies drug use. MEDICATIONS: 1. Xarelto 15 mg. 2. Atorvastatin 10 mg p.o. daily. 3. Spironolactone 25 mg. 4. Melatonin 10 mg at bedtime. REVIEW OF SYSTEMS: Ten-point review of systems is negative unless otherwise indicated in the above HPI. PHYSICAL EXAMINATION: VITAL SIGNS: Blood pressure 139/86, pulse 82, respirations 20, SpO2 98% on 2 L nasal cannula, temp 98.7. GENERAL: Moderate distress due to pain. The patient is awake, alert, oriented to person, time, place, and event. HEENT: Head is atraumatic, normocephalic. Pupils are equal and reactive at 3 mm bilateral. Mucous membranes are slightly dry. NECK: Trachea midline, no JVD. RESPIRATORY: Bilateral breath sounds clear and slightly diminished, no wheezing , rales, or rhonchi. Equal chest expansion. No respiratory distress. CARDIOVASCULAR: Regular rhythm, normal heart sounds, no murmurs, no pedal edema. ABDOMEN: Soft, nontender, nondistended. EXTREMITIES: Moves all extremities, right hip pain, right knee pain with movement, no obvious deformity or injuries. The patient has normal range of motion in all extremities, distal pulses 2+ in all extremities. NEUROLOGIC: Oriented to person, place, time, and event, normal speech, no focal deficits. LABORATORY DATA: WBC 8.3, RBC 3.37, hemoglobin 10.4, hematocrit 32.7, platelets 191. PT 28.6, INR 2.7, APTT 39.7. Sodium 135, potassium 4.4, chloride 101, carbon dioxide 25, BUN 30, creatinine 1.46, estimated GFR 46, glucose 97, calcium 9.5, phosphorus 3.6, magnesium 1.5. AST 16, ALT 11, alkaline phosphatase 81. CK 53, CK-MB 2.6, troponin 0.059, albumin 3.9, globulin 3.0, lipase 23. DIAGNOSTICS: 1. Chest x-ray, no acute intrathoracic abnormality, heart size is enlarged. 2. Right knee x-ray, soft tissue swelling without acute displaced fracture. 3. Right tib-fib x-ray, chronic findings, no acute displaced fracture, degenerative disease. Bones are osteopenic. 4. Right ankle x-ray, no evidence of acute osseous abnormality. 5. Brain CT, no evidence of intracranial hemorrhage or mass effect. 6. Pelvis x-ray, comminuted fracture, right iliac wing, separate from the SI joint, severe degenerative changes of both hips, possible nondisplaced fractures of the right superior and inferior pubic rami. 7. Right femur x-ray, diffuse regional osteopenia. No evidence of acute osseous abnormality. 8. Pelvis CT, comminuted right iliac wing fracture. Hematoma involving right iliac muscle and partially visualized hematoma involving the right posterior pararenal fat. IMPRESSION: 1. Possible near syncopal episode. 2. Fall from standing. 3. Comminuted right iliac wing fracture. 4. Hyponatremia. 5. Acute on chronic kidney disease, stage 3. 6. History of congestive heart failure with ejection fraction of 20% to 25%. 7. History of chronic obstructive pulmonary disease. 8. Pacemaker and defibrillator. 9. History of multiple recent falls. 10. History of renal cancer with right nephrectomy. 11. Coronary artery disease. 12. History of deep venous thrombosis, on Xarelto. PLAN: Admit the patient to the tele floor for continuous cardiac monitoring as the patient had an episode of bradycardia per EMS in the rates of 26. The patient was given atropine with improvement. The patient denied any syncopal episode, but we will work the patient up. The patient's pacemaker was interrogated in the emergency room. We will get a repeat troponin and trend the patient's troponin as it was slightly elevated in the emergency room. We will consult Cardiology if needed. Pending evaluation of Orthopedic Surgery. Consult was placed for right iliac wing fracture. We will control the patient's pain. The patient most likely will need inpatient rehab. The plan will be discussed with the attending surgeon after this dictation. The plan was discussed with the patient and who agree. Job ID: [id number] MTDD
[2019-03-05] MEDS: Atorvastatin Calcium 10 MG TAB PO SCH (21:20)
--- NOTE | 2019-03-06 00:31 | PRG ---
DATE OF SERVICE: 03/05/2019 SUBJECTIVE: This is an 83-year-old gentleman, who is hospital day #2, status post mechanical fall with a history of multiple falls. The patient has a non- operative comminuted right iliac wing fracture. The patient has some episodes of being confused off and on. states this is normal for him. The patient and both state the patient has consistently low oxygen levels. The patient was wearing home O2, but does not always comply with. States that sometimes his oxygen levels are in the 70s. The patient with an extensive history of smoking and COPD. The patient sees Dr. Harris for his COPD and states that he has not seen him in the last 3 months. The patient and both request Dr. Harris be consulted while he is in the hospital. The patient did participate with Physical Therapy and was able to walk a few steps. The patient is more alert today as yesterday he was sleepy and did not participate much with physical therapy. OBJECTIVE: VITAL SIGNS: Temperature 98.1, pulse 91, respirations 18, SpO2 of 94% on 4 L, blood pressure 129/57. GENERAL: Elderly-appearing gentleman, lying in bed, just got done participated with physical therapy. No acute distress. The patient does report he gets short- winded easily. RESPIRATORY: Chest is clear bilaterally. No wheezing, rales, or rhonchi. CARDIAC: Paced rhythm, no pedal edema. EXTREMITIES: Moves all extremities. Positive distal pulses 2+. LABORATORY DATA: WBC 7.4, RBC 3.00, hemoglobin 9.5, hematocrit 29.6, platelets 170. Sodium 134, potassium 5.2, chloride 99, CO2 of 29, anion gap 11, BUN 34, creatinine 1.26. Estimated GFR 55, glucose 88, calcium 9.0, phosphorus 4.8, magnesium 1.8. IMPRESSION: 1. Multiple recent falls. 2. Deconditioning and generalized weakness. 3. Right iliac wing comminuted fracture, nonoperative. 4. History of pacemaker and coronary artery disease. 5. History of chronic obstructive pulmonary disease. 6. Congestive heart failure, reduced EF. 7. Acute on chronic renal disease, present on admission. 8. Hyperkalemia. 9. History of renal cancer, right nephrectomy. PLAN: We will continue patient's cardiac diet. We will continue physical and occupational therapy. The patient is pending rehab screen for continued physical and occupational therapy. We will consult Dr. Harris per patient and family request. We will continue neb treatments as needed. The plan was discussed with the attending physician, who agrees. Job ID: [id number] MTDD
[2019-03-06 04:47] LABS: #Lymphocytes 0.9 thou/uL (1.20-3.40); #Monocytes 0.9 thou/uL (0.11-0.59); #Neutrophils 6.6 thou/uL (1.40-6.50); %Basophils 0.4 % (0.0-1.0); %Eosinophils 0.3 % (0.0-10.0); %Lymphocytes 10.4 % (21.0-51.0); Hemoglobin 9.3 g/dL (14.0-18.0); Mean Corpuscular HGB CONC 31.5 g/dL (32.0-36.0); Mean Corpuscular Hemoglobin 30.9 pg (27.0-31.0); Mean Corpuscular Volume 98.1 fL (78.0-98.0); Mean Platelet Volume 8.3 fL (7.4-10.4); Platelet Count 182 thou/uL (130-400); RBC Distribution Width 15.2 % (11.5-14.5); Red Blood Cell (RBC) Count 2.99 mill/uL (4.70-6.10); White Blood Cell (WBC) Count 8.5 thou/uL (4.8-10.8)
[2019-03-06] MEDS: Acetaminophen 500 MG TAB PO SCH ×4 (05:20→22:26)
[2019-03-06 05:25] LABS: Anion Gap 15 mmol/L (10-20); BUN (Urea Nitrogen) 52 mg/dL (8.4-25.7); Calc. Creatinine Clearance 34 mL/min (70-130); Calcium 9.4 mg/dL (7.8-10.44); Carbon Dioxide 29 mmol/L (23-31); Chloride 95 mmol/L (98-107); Estimated GFR-MDRD 34; Glucose 129 mg/dL (83-110); Magnesium 1.9 mg/dL (1.6-2.6); Phosphorus 4.6 mg/dL (2.3-4.7); Potassium 6.4 mmol/L (3.5-5.1); Sodium 133 mmol/L (136-145)
[2019-03-06 07:35] LABS: Actual Bicarbonate (HCO3a) 30.6 mEq/L (22-28); Analyzer IN Cardio OR; Base Excess (BEa) 2.2 mEq/L (-2.0 to +3.0); Calcium, Ionized 1.15 mmol/L (1.12-1.30); Carboxyhemoglobin (COHb) 1.5 gm% (0.0-3.0); Hemoglobin (Hb) 9.3 g/dL (14.0-18.0); O2 Tension (PaO2) 73.1 mmHg (> 60.0); Potassium - ABG Lab 5.81 mmol/L (3.70-5.30)
[2019-03-06 07:44] LABS: CO2 Tension 72.8 mmHg (35.0-45.0); Puncture Site RB; pH, Arterial 7.24 (7.35-7.45)
[2019-03-06] MEDS: Ascorbic Acid 500 mg Chewable Tablet PO SCH ×2 (08:46→20:37)
[2019-03-06] MEDS: Rivaroxaban 15 MG TAB PO SCH (08:47)
[2019-03-06] MEDS: Polyethylene Glycol 3350 17 GM Packet PO SCH (08:47)
[2019-03-06] MEDS: Escitalopram Oxalate 10 mg Tablet PO SCH (08:47)
[2019-03-06] MEDS: Ferrous Sulfate 325 MG TAB PO SCH ×2 (08:47→15:12)
[2019-03-06] MEDS: Senokot S 8.6-50 MG TAB PO SCH ×2 (08:48→20:37)
[2019-03-06] MEDS ORDERED: Dextrose 50% Abboject 50 ML SYRINGE SLOW IVP SCH (09:00)
[2019-03-06] MEDS ORDERED: Calcium Gluconate 4.6 MEQ in Sodium Chloride 0.9% 100 ML IVPB SCH (09:03)
[2019-03-06] MEDS ORDERED: Insulin Regular 300 UNITS/3 ML VIAL IVP SCH (09:15)
[2019-03-06] MEDS ORDERED: traMADol HCl 50 MG TAB PO PRN (09:23)
[2019-03-06 09:49] LABS: Creatinine, Urine 125.31 mg/dL (63-166)
--- NOTE | 2019-03-06 10:11 | CON ---
DATE OF CONSULTATION: HISTORY OF PRESENT ILLNESS: This 83-year-old gentleman. We were consulted regarding shortness of breath. He was confused last night, he is unclear where he is. He sees Dr. Harris apparently in the office, though he is clearly confused this morning, but he said he is feeling better. He has had difficulty breathing. He yesterday is unable to cough any sputum up. PAST MEDICAL HISTORY: Pertinent for CHF, hypoxemia, coronary artery disease, previous DVT and PE, requiring a filter. PREVIOUS SURGERIES: Include nephrectomy, AICD, bypass, TURP, gallbladder, and cataract. This admission, he has been in the hospital since 03/03. Apparently, he was admitted after he fell down. He lost his balance. He is bradycardic. He has been seen by Trauma Service. We have been consulted. HOME MEDICATIONS: Include: 1. Aldactone 25. 2. Xarelto 15. 3. Melatonin 10. 4. Celexa 10. 5. Atorvastatin 10. 6. Tylenol. ALLERGIES: IODINE. SOCIAL HISTORY: Unclear. No recent alcohol or tobacco abuse. REVIEW OF SYSTEMS: Ten-point negative. PHYSICAL EXAMINATION: VITAL SIGNS: He is hypoxic, sats are 90% on 2.5, respiratory rate 18, temperature 98, and blood pressure 112/57. CHEST: Decreased breath sounds. No wheezing. CARDIAC: Normal S1, S2. No gallops. ABDOMEN: No masses. LABORATORY DATA: White count 8000, H and H 9 and 29, and platelet count is normal. His PO2 is 73 and pH 7.24, acute on chronic respiratory failure. His creatinine is 1.19, potassium is 6.4. IMPRESSION: Acute on chronic respiratory failure with marked CO2 retention, renal failure, fracture of right iliac wing, coronary artery disease, chronic anticoagulation, status post filter, hyponatremia, and hyperkalemia. PLAN: Scheduled neb treatments, Dulera. Brief course of steroids was initiated. We will notify Dr. Harris. This is a consultation note, 70 minutes, 50% direct patient care. Job ID: [id number]
--- NOTE | 2019-03-06 10:49 | RAD ---
XR Chest 1 View Portable History: Congestive heart failure Comparison: Radiograph from March 03, 2019 Findings: Heart size is enlarged. Scarring both lung bases. No pneumothorax. Cardiac device is similar. Dense calcifications of the aorta. Impression: Similar examination of the chest. Chronic findings. No acute intrathoracic abnormality.
--- NOTE | 2019-03-06 13:43 | PRG ---
DATE OF SERVICE: 03/06/2019 SUBJECTIVE: This is an 83-year-old gentleman, hospital day #3 status post mechanical fall. The patient remains paced rhythm without any ectopy. The patient with a right iliac wing fracture that is nonoperative per Orthopedic Surgery. The patient remains on the telemetry floor. The patient has episodes of being confused, but seems better this morning. The patient was able to ambulate briefly with physical therapy using a walker yesterday. The patient denies any pain while lying in bed. The patient is tolerating a diet and drinking fluids without any difficulty. The patient was evaluated by Speech Therapy yesterday and was noted to have [id number] functional impairment. The patient tolerating mechanical soft textures. Speech Therapy will continue to follow the patient with recommendation and oral exercises. OBJECTIVE: VITAL SIGNS: 92% on 3 L nasal cannula, temperature 98.7, pulse 91, respirations 20, and blood pressure 118/56. GENERAL: The patient is awake, alert, lying in hospital bed, elderly appearing gentleman, no acute respiratory distress. The patient oriented to person and place. RESPIRATORY: Chest is clear bilateral, no wheezing, rales, or rhonchi. CARDIAC: Paced rhythm, no pedal edema. EXTREMITIES: Moves all extremities, positive distal pulses 2+. ABDOMEN: Soft, nontender, nondistended. LABORATORY DATA: WBC 8.5, RBC 2.99, hemoglobin 9.1, hematocrit 29.4, and platelets 182. ABG; bicarb 30.6, pH 7.24, CO2 of 72.8, pO2 of 73.1. Sodium 133, potassium 6.4, chloride 95, anion gap 15, carbon dioxide 29, BUN 52, creatinine 1.91, estimated GFR 34, glucose 129, calcium 9.4, phosphorus 4.6, and magnesium 1.9. Urine creatinine 125.31, urine sodium 35. DIAGNOSTICS: Chest x-ray, similar examination of chest. Chronic findings. No acute intrathoracic abnormality. Scarring in both lung bases. Heart size enlarged. Echo with EF of 40% to 45%. IMPRESSION: 1. Status post fall from standing. Possible syncopal episode. 2. Comminuted right iliac wing fracture, nonoperative. 3. Hyponatremia. 4. Acute on chronic kidney disease, present on admission. 5. History of congestive heart failure with ejection fraction of 20% to 25% in June of 2018. Repeat echo improved. 6. History of chronic obstructive pulmonary disease. 7. Pacemaker and defibrillator. 8. History of recent falls. 9. History of renal cancer with right nephrectomy. 10. Coronary artery disease. 11. History of deep vein thrombosis, on Xarelto and history of IVC filter placed in 2017. 12. Hyperkalemia secondary to renal disease. PLAN: Continue supportive care. We will treat the patient's hyperkalemia. We will encourage the patient to drink plenty of fluids. Pulmonary did evaluate the patient today and place the patient on night BiPAP and steroids. We will continue physical and occupational therapy. The patient restarted on his Xarelto. Continue to hold spironolactone due to hyperkalemia. The patient was examined with Dr. Cuadra during morning rounds. Dr. Cuadra did speak with the patient's spouse over the phone. Plan was discussed and agreed. Job ID: [id number] MTDD
[2019-03-06 14:33] LABS: Anion Gap 12 mmol/L (10-20); BUN (Urea Nitrogen) 59 mg/dL (8.4-25.7); Calc. Creatinine Clearance 33 mL/min (70-130); Carbon Dioxide 31 mmol/L (23-31); Chloride 97 mmol/L (98-107); Estimated GFR-MDRD 33; Glucose 141 mg/dL (83-110); Potassium 5.4 mmol/L (3.5-5.1); Sodium 135 mmol/L (136-145)
--- NOTE | 2019-03-06 15:59 | PQF ---
CLINICAL DOCUMENTATION IMPROVEMENT CLARIFICATION FORM: ICD-10 Updated PLEASE DO AN ADDENDUM TO THE PROGRESS NOTE WITH ANY DOCUMENTATION UPDATES OR ADDITIONS AND CARRY THROUGH TO DC SUMMARY. THANK YOU. DATE: 03/03/2019 ATTN: Dr. Cuadra Please exercise your independent, professional judgment in responding to the clarification form. Clinical indicators are provided on the bottom of this form for your review Please check appropriate box(s): HEART FAILURE: A. TYPE: [ ] Systolic / HFrEF [ ] Diastolic / HFpEF [ ] Combined Systolic / Diastolic B. ACUITY [ ] Acute [ ] Acute on Chronic [x ] Chronic [ ] Other diagnosis [ ] Unable to determine In addition, please specify: Present on Admission (POA): [x ] Yes [ ] No [ ] Unable to determine For continuity of documentation, please document condition throughout progress notes and discharge summary. Thank You. CLINICAL INDICATORS - SIGNS / SYMPTOMS / LABS PN 03/06: History of CHF with ejection fraction of 20% to 25% in June of 2018. Repeat echo improved. 03/04 ECHO Report: EF visually is estimated at 40-45% RISKS: H&P 03/03: PMH: R nephrectomy d/t bladder cancer, open heart bypass, congestive heart failure, pacemaker and defibrillator. Hx of CHF with EF of 20 to 25 %. TREATMENT: 2D echo ordered 03/04 MAR: Order 03/04 Aldactone 25 mg po daily Thank you, Wendy (This form is maintained as a part of the permanent medical record) 2014 [employer]. All Rights Reserved Wendy Swenson RN, BSN [email or web address] Office: [phone] [facility]
--- NOTE | 2019-03-06 16:32 | PQF ---
CLINICAL DOCUMENTATION IMPROVEMENT CLARIFICATION FORM: ICD-10 Updated PLEASE DO AN ADDENDUM TO THE PROGRESS NOTE WITH ANY DOCUMENTATION UPDATES OR ADDITIONS AND CARRY THROUGH TO DC SUMMARY. THANK YOU. DATE: 03/06/2019; 03/08/2019 ATTN: Fartun Carlson NP/ Dr. Cuadra Please exercise your independent, professional judgment in responding to the clarification form. Clinical indicators are provided on the bottom of this form for your review Please check appropriate box(s): [ ] Acute Renal Failure (ARF) / Acute Kidney Injury (BETO) [ x] Acute on Chronic Renal Failure please specify Stage of CKD (see below) [ ] CKD without ARF/BETO please specify Stage of CKD [ ] Other diagnosis [ ] Unable to determine In addition, please specify: Present on Admission (POA): [ x ] Yes [ ] No [ ] Unable to determine For continuity of documentation, please document condition throughout progress notes and discharge summary. Thank You. CLINICAL INDICATORS - SIGNS / SYMPTOMS / LABS H&P 03/03: creatinine 1.46, estimated GFR 46 Acute on chronic kidney disease, stage 3. PN 03/04: creatinine 1.32, estimated GFR 53 Acute on chronic kidney disease. 03/06 (Davies) His creatinine is 1.19 renal failure RISKS: H&P 03/03: PMH: R nephrectomy d/t bladder cancer. open heart bypass, congestive heart failure, Medications: Spironolactone 25 mg PN 03/06: Hyperkalemia secondary to renal disease. TREATMENT: Lab order BMP 03/04, 03/05, 03/06 PN 03/06: We will encourage the pt to drink plenty of fluids. Continue to hold spironolactone d/t hypokalemia. National Kid[employer] Guidelines for CKD Staging Stage I Kidney damage with normal or increased GFR GFR > 90 Stage II Kidney damage with mildly decreased GFR GFR 60-89 Stage III Kidney damage with moderately decreased GFR GFR 30-59 Stage IV Kidney damage with severely decreased GFR GFR 16-29 Stage V Kidney failure GFR < 15 ESRD End Stage Renal Disease On dialysis Acute Renal Failure/Acute Kidney Failure defined as: Increases in SCr by (>) 0.3 mg/dl within 48 hours OR- Increases in SCr by (>) 1.5 times baseline, known or presumed to have occurred within the prior 7 days OR- Urine volume < 0.5 ml/kg/hour for 6 hours (KDIGO supplement 2012 for RIFLE/BERNICE criteria) Thank you, Wendy (This form is maintained as a part of the permanent medical record) 2014 [employer]. All Rights Reserved Wendy Swenson RN, BSN [email or web address] Office: [phone] [facility]
[2019-03-06] MEDS: Mometasone/Formoterol 120 PUFF INHALER INH SCH (18:38)
[2019-03-06] MEDS: methylPREDNISolone Sod Succ 40 MG VIAL IVP SCH (20:37)
[2019-03-06] MEDS: Atorvastatin Calcium 10 MG TAB PO SCH (20:37)
[2019-03-06] MEDS ORDERED: Sodium Chloride 0.9% 500 ML IV SCH (21:45)
[2019-03-07] MEDS: Sodium Chloride 0.9% 1,000 ML IV SCH ×2 (00:38→10:46)
[2019-03-07] MEDS: Acetaminophen 500 MG TAB PO SCH ×4 (03:49→21:23)
[2019-03-07 06:22] LABS: #Lymphocytes 0.4 thou/uL (1.20-3.40); #Monocytes 0.1 thou/uL (0.11-0.59); #Neutrophils 6.7 thou/uL (1.40-6.50); %Basophils 0.1 % (0.0-1.0); %Eosinophils 0.2 % (0.0-10.0); %Lymphocytes 5.7 % (21.0-51.0); %Monocytes 1.5 % (0.0-10.0); %Neutrophils 92.5 % (42.0-75.0); Hemoglobin 9.1 g/dL (14.0-18.0); Mean Corpuscular HGB CONC 31.7 g/dL (32.0-36.0); Mean Corpuscular Hemoglobin 31.3 pg (27.0-31.0); Mean Corpuscular Volume 98.8 fL (78.0-98.0); Mean Platelet Volume 8.1 fL (7.4-10.4); Platelet Count 170 thou/uL (130-400); RBC Distribution Width 15.2 % (11.5-14.5); Red Blood Cell (RBC) Count 2.89 mill/uL (4.70-6.10); White Blood Cell (WBC) Count 7.3 thou/uL (4.8-10.8)
[2019-03-07] MEDS ORDERED: Sodium Chloride 0.9% 1,000 ML IV SCH (06:39)
[2019-03-07 06:43] LABS: Anion Gap 14 mmol/L (10-20); BUN (Urea Nitrogen) 59 mg/dL (8.4-25.7); Calc. Creatinine Clearance 40 mL/min (70-130); Calcium 9.4 mg/dL (7.8-10.44); Carbon Dioxide 28 mmol/L (23-31); Chloride 99 mmol/L (98-107); Estimated GFR-MDRD 41; Glucose 181 mg/dL (83-110); Magnesium 1.8 mg/dL (1.6-2.6); Phosphorus 3.2 mg/dL (2.3-4.7); Potassium 6.1 mmol/L (3.5-5.1); Sodium 135 mmol/L (136-145)
[2019-03-07] MEDS ORDERED: Calcium Gluconate 4.6 MEQ in Sodium Chloride 0.9% 100 ML IVPB ONE (08:00)
[2019-03-07] MEDS: Mometasone/Formoterol 120 PUFF INHALER INH SCH ×2 (08:03→19:04)
[2019-03-07] MEDS: Ferrous Sulfate 325 MG TAB PO SCH ×2 (09:47→17:00)
[2019-03-07] MEDS: Escitalopram Oxalate 10 mg Tablet PO SCH (09:47)
[2019-03-07] MEDS: Senokot S 8.6-50 MG TAB PO SCH ×2 (09:47→21:23)
[2019-03-07] MEDS: Rivaroxaban 15 MG TAB PO SCH (09:48)
[2019-03-07] MEDS: Ascorbic Acid 500 mg Chewable Tablet PO SCH ×2 (09:48→21:23)
[2019-03-07] MEDS: methylPREDNISolone Sod Succ 40 MG VIAL IVP SCH (09:57)
[2019-03-07] MEDS: Polyethylene Glycol 3350 17 GM Packet PO SCH (10:00)
[2019-03-07] MEDS: Spironolactone 25 MG TAB PO SCH (10:46)
[2019-03-07 10:55] LABS: Anion Gap 11 mmol/L (10-20); BUN (Urea Nitrogen) 58 mg/dL (8.4-25.7); Calc. Creatinine Clearance 44 mL/min (70-130); Calcium 8.8 mg/dL (7.8-10.44); Carbon Dioxide 31 mmol/L (23-31); Chloride 98 mmol/L (98-107); Estimated GFR-MDRD 46; Glucose 173 mg/dL (83-110); Potassium 5.4 mmol/L (3.5-5.1); Sodium 135 mmol/L (136-145)
--- NOTE | 2019-03-07 13:00 | PRG ---
DATE OF SERVICE: 03/07/2019 SUBJECTIVE: This is an 83-year-old male, hospital day 4, status post mechanical fall. The patient has a right iliac wing fracture that is nonoperative. He remains in paced rhythm, but was tachycardic overnight. He has episodes of being confused, but it has improved from yesterday. Family is in the room. He has been working with physical and occupational therapy. Tolerating a mechanical soft diet with the assistance of family this morning. OBJECTIVE: VITAL SIGNS: Blood pressure 142/70, temperature 97.6, pulse 99, respirations 16, SpO2 of 96% on 2 L nasal cannula. GENERAL: Alert, elderly gentleman. NECK: Supple. Trachea midline. RESPIRATORY: Clear to auscultation bilaterally. No wheezing. CARDIAC: Paced rhythm. No edema. EKG performed in the room today. EXTREMITIES: Moves extremities x4. Dorsalis pedis 2+. ABDOMEN: Soft, nontender, nondistended. LABORATORY DATA: Hemoglobin 9.1. Hematocrit 28.6. Sodium 135. Potassium 6.1, repeat 5.4. Creatinine 1.6, repeat 1.47. BUN 59, repeat 58. Glucose 181. Magnesium 1.8. Phosphorus 3.2. DIAGNOSTICS: EKG: Atrial sensed ventricular paced rhythm. IMPRESSION: 1. Status post fall from standing, possible syncopal episode. 2. Comminuted right iliac wing fracture, nonoperative. 3. Hyponatremia. 4. Acute on chronic kidney disease, likely prerenal azotemia. 5. Congestive heart failure with reduced ejection fraction. 6. Chronic obstructive pulmonary disease. 7. Pacemaker and defibrillator. 8. Renal cancer with right nephrectomy. 9. Coronary artery disease. 10. History of deep vein thrombosis, on Xarelto and history of IVC filter placed in 2017. 11. Hyperkalemia secondary to renal disease. PLAN: We will continue supportive care, continuing to treat the patient's hyperkalemia. Increased again today from decline to 5.4. Will give calcium gluconate and increased dose of Kayexalate to 30. The patient had 3 bowel movements yesterday. The patient's potassium this morning was 6.1. Yesterday, after a dose of Kayexalate, it was 5.4. Obtained EKG today that showed ventricular paced. No evidence of AFib or T-wave changes. The patient is on Xarelto for history of DVT. He is currently on normal saline at 75. We will continue mechanical soft diet and Speech will continue to follow. Physical and Occupational Therapy are working with him. We will also discontinue spironolactone due to hyperkalemia. Pulmonology is following the patient in regard to COPD exacerbation. He is pending placement in [facility]. The patient was seen and evaluated by Dr. Cuadra during morning rounds. Plan was discussed with the patient and who are in agreement with the plan. Job ID: [id number] [facility]
--- NOTE | 2019-03-07 15:15 | CON ---
DATE OF CONSULTATION: 03/07/2019 HISTORY OF PRESENT ILLNESS: Mr. Gordon is an 83-year-old male. I have seen twice in the office. He has very severe obstructive lung disease, but has not been oxygen dependent at home. He presented after a fall walking into a restaurant. Subsequently admitted to the Trauma Service. PAST MEDICAL HISTORY: Remarkable for; 1. Anticoagulation for deep vein thrombosis. 2. Status post inferior vena cava filter. 3. History of pacemaker implantation. 4. History of nephrectomy for bladder cancer. 5. History of coronary artery bypass grafting. 6. History of ejection fraction 25% per my office notes. 7. History of pacemaker defibrillator. 8. History of chemotherapy prior to his nephrectomy. 9. History of TURP. 10. History of knee surgery. 11. History of cataract surgery. 12. History of coronary artery bypass grafting four vessels in the past. MEDICATIONS: Medications were reviewed. SOCIAL HISTORY: He is nonsmoker, nondrinker, and nondrug user. ALLERGIES: HE REPORTS ALLERGIES IODINE. REVIEW OF SYSTEMS: Not obtainable as he is confused. PHYSICAL EXAMINATION: GENERAL: He said when I walked in the room, I remember you after you out of my room last time I was here. His shook her head no and I certainly have no recollection of that or documentation of that reviewing all records. VITAL SIGNS: He is afebrile. Heart rate is 93, oximetry is 96 and he is on 2 L , and blood pressure 142/70. HEENT: Pupils are equal. Sclerae are anicteric. NECK: Without lymphadenopathy. LUNGS: Clear. HEART: Regular rhythm. S1 and S2 normal. ABDOMEN: Soft and nontender. EXTREMITIES: Without clubbing, cyanosis, or edema. NEURO: Cannot be completely assessed because he is not cooperative. LABORATORY DATA: White count 7.3, hemoglobin 9.1, and platelets 170,000. Sodium 135, potassium 5.4, chloride 98, bicarb 31, BUN 58, and creatinine 1.47. Creatinine is 1.26 on admission, got up to 1.93 yesterday. Intake and output positive 160. IMPRESSION AND PLAN: 1. Encephalopathy of unclear etiology. 2. Status post fall, predominantly secondary to deconditioning. 3. Severe underlying chronic obstructive pulmonary disease. 4. History of inferior vena cava filter. 5. History of anticoagulants in the past. He is on Xarelto 15 mg a day. The standard doses 15 mg twice a day loading and then 20 mg a day standard for full anticoagulation. I believe he gets a lot of his care at [facility]. I will have records regarding that. Reviewing his medications, the steroids may be aggravating his confusion. So, he is not acutely bronchospastic. I would discontinue these. We would continue routine nebulizer treatments. I would add budesonide twice a day. We will follow. Job ID: [id number] [facility]TD[facility]
[2019-03-07] MEDS: Budesonide 0.5 MG/2 ML NEB INH SCH (18:53)
[2019-03-07] MEDS: Atorvastatin Calcium 10 MG TAB PO SCH (21:23)
[2019-03-08] MEDS: Acetaminophen 500 MG TAB PO SCH ×5 (04:30→22:13)
[2019-03-08 06:39] LABS: #Lymphocytes 0.5 thou/uL (1.20-3.40); #Monocytes 0.6 thou/uL (0.11-0.59); #Neutrophils 8.7 thou/uL (1.40-6.50); %Eosinophils 0.2 % (0.0-10.0); %Lymphocytes 4.7 % (21.0-51.0); %Monocytes 6.3 % (0.0-10.0); %Neutrophils 88.8 % (42.0-75.0); Hemoglobin 7.5 g/dL (14.0-18.0); Mean Corpuscular HGB CONC 32.4 g/dL (32.0-36.0); Mean Corpuscular Hemoglobin 31.5 pg (27.0-31.0); Mean Corpuscular Volume 97.4 fL (78.0-98.0); Mean Platelet Volume 8.1 fL (7.4-10.4); Platelet Count 164 thou/uL (130-400); RBC Distribution Width 15.7 % (11.5-14.5); Red Blood Cell (RBC) Count 2.37 mill/uL (4.70-6.10); White Blood Cell (WBC) Count 9.8 thou/uL (4.8-10.8)
[2019-03-08] MEDS: Mometasone/Formoterol 120 PUFF INHALER INH SCH ×2 (06:44→18:53)
[2019-03-08] MEDS: Budesonide 0.5 MG/2 ML NEB INH SCH ×2 (06:45→18:32)
[2019-03-08 06:57] LABS: Anion Gap 9 mmol/L (10-20); BUN (Urea Nitrogen) 59 mg/dL (8.4-25.7); Calc. Creatinine Clearance 51 mL/min (70-130); Calcium 8.7 mg/dL (7.8-10.44); Carbon Dioxide 33 mmol/L (23-31); Chloride 100 mmol/L (98-107); Estimated GFR-MDRD 55; Glucose 133 mg/dL (83-110); Magnesium 1.7 mg/dL (1.6-2.6); Phosphorus 1.9 mg/dL (2.3-4.7); Potassium 4.6 mmol/L (3.5-5.1); Sodium 137 mmol/L (136-145)
[2019-03-08] MEDS ORDERED: Sodium Phosphate 30 MMOL in Sodium Chloride 0.9% 250 ML 250 ML IVPB SCH (07:30)
[2019-03-08] MEDS ORDERED: Furosemide 20 MG/2 ML VIAL SLOW IVP SCH (08:45)
[2019-03-08] MEDS: Ferrous Sulfate 325 MG TAB PO SCH ×2 (08:48→17:05)
[2019-03-08] MEDS: Escitalopram Oxalate 10 mg Tablet PO SCH (08:48)
[2019-03-08] MEDS: Ascorbic Acid 500 mg Chewable Tablet PO SCH ×2 (08:48→22:14)
[2019-03-08] MEDS: Rivaroxaban 15 MG TAB PO SCH (08:48)
[2019-03-08] MEDS: Senokot S 8.6-50 MG TAB PO SCH ×4 (08:49→22:15)
[2019-03-08] MEDS: Polyethylene Glycol 3350 17 GM Packet PO SCH (08:50)
[2019-03-08] MEDS ORDERED: Polyethylene Glycol 3350 17 GM Packet PO SCH (09:00)
[2019-03-08] MEDS ORDERED: Magnesium 2 GM/50 ML 2 GM in Premix Bag 1 BAG IVPB SCH (09:00)
--- NOTE | 2019-03-08 12:51 | PRG ---
DATE OF SERVICE: 03/08/2019 SUBJECTIVE: An 83-year-old male, hospital day 5, status post mechanical fall. The patient has a right iliac wing fracture that is nonoperative. He has continued to be tachycardic and had confusion. is present in the room today and reports that he has been having hallucinations as well as thinking that he is back in [place] where he was raised. He has been working with Physical and Occupational Therapy. He did have some coughing this morning with breakfast, but Speech has been following him and has recommended mechanical soft diet. No other overnight events. OBJECTIVE: VITAL SIGNS: Blood pressure 144/79, temperature 98.2, pulse 109, respirations 20, SpO2 of 93% on room air. GENERAL: Alert, elderly gentleman, oriented to self. NECK: Supple: Trachea midline. RESPIRATORY: Expiratory wheezing bilaterally. CARDIAC: Regular rate and rhythm. No edema. EXTREMITIES: Moves extremities x4. Dorsalis pedis 2+. MUSCULOSKELETAL: Ambulating with 2 person assist this morning from [facility]. ABDOMEN: Soft, nontender, nondistended. LABORATORY DATA: Hemoglobin 7.5, hematocrit 23.1, sodium 137, potassium 4.6, creatinine 1.26, phosphorus 1.9, magnesium 1.7. DIAGNOSTICS: There are no new diagnostics to review. IMPRESSION: 1. Status post fall from standing, possible syncopal episode. 2. Comminuted right iliac wing fracture, nonoperative. 3. Hyponatremia, resolved. 4. Chronic obstructive pulmonary disease and acute exacerbation. 5. Hyperkalemia, resolved. 6. Acute on chronic kidney disease, improving. 7. Congestive heart failure with reduced ejection fraction. 8. Pacemaker with defibrillator. 9. Renal cancer, status post right nephrectomy. 10. Coronary artery disease. 11. History of deep vein thrombosis, on Xarelto, and history of IVC filter placed in 2017. 12. History of CABG. PLAN: Continue supportive care. We will obtain a noncontrast brain CT this morning due to the patient's acute worsening in altered mental status. We will encourage family to be present in the room and to have windows open during the daytime and minimize interruptions at night. This could likely be some increased confusion due to delirium. His hyperkalemia and hyponatremia have resolved since yesterday. Physical and Occupational Therapy have continued to work with him. We will not continue spironolactone at this time due to the patient's history of hyperkalemia this hospitalization. Pulmonary is following the patient in regard to his COPD exacerbation. Yesterday, Dr. Harris added budesonide b.i.d. and discontinued steroids which could be contributing to his altered mental status. We will continue the patient's bowel regimen. For his anemia with hemoglobin of 7.5, he will be receiving 1 unit of blood today with addition of 20 mg of IV Lasix due to his history of heart failure with reduced ejection fraction. Case Management is continuing to follow for placement in [facility]. This patient was seen and evaluated by Dr. Cuadra during morning rounds. Plan was discussed with the patient and who were in agreement with the plan. Job ID: [id number] [facility]TDD
--- NOTE | 2019-03-08 13:34 | CT ---
EXAM: CT brain without contrast HISTORY: Fall on blood thinners with head trauma COMPARISON: 03/03/2019 TECHNIQUE: Multiple contiguous axial images were obtained and a CT of the brain without contrast. FINDINGS: There are scattered hypodensities in the subcortical and periventricular white matter consi stent with small vessel ischemic disease. There is no evidence of hydrocephalus, intracranial hemorrhage, or extra-axial fluid collection. The calvarium and overlying soft tissues are unremarkable. The visualized paranasal sinuses and masto id air cells are well aerated. IMPRESSION: No evidence of acute intracranial abnormality
--- NOTE | 2019-03-08 15:21 | PRG ---
DATE OF SERVICE: 03/08/2019 SUBJECTIVE: Noe Gordon is more lucid today. He knew he was in the hospital. He recognized me when I walked in. He is in a good mood. He remembered that he had an appointment with me coming up in the next few weeks. OBJECTIVE: VITAL SIGNS: He is afebrile. Heart rate 100, respiratory rate 14, oximetry is 94%, and blood pressure 123/78. LUNGS: Clear. HEART: Regular rhythm. ABDOMEN: Soft. LABORATORY DATA: White count 9.8, hemoglobin 7.5, platelets 164. Sodium 137, potassium 4.6, chloride 100, bicarb 33, BUN , creatinine 1.26. Intake and output reported as positive 200, but only had 100 mL urine in the last 24 hours, that is probably not accurate. IMPRESSION: 1. Encephalopathy, most likely brought on by steroids. Had a second CT yesterday did not show any abnormalities. 2. Chronic obstructive pulmonary disease, clinically stable. 3. Status post fall with no documented rhythm abnormality. 4. History of cardiomyopathy. 5. History of pacemaker defibrillator. 6. History of nephrectomy from bladder cancer. 7. History of coronary artery bypass grafting in the past. 8. Iodine allergy. PLAN: Continue supportive care. He is stable at this time. Job ID: [id number]
[2019-03-08] MEDS: Atorvastatin Calcium 10 MG TAB PO SCH (22:13)
[2019-03-09] MEDS: Acetaminophen 500 MG TAB PO SCH ×2 (04:35→11:04)
[2019-03-09 05:47] LABS: #Eosinphils 0.1 thou/uL (0.0-0.7); #Lymphocytes 0.7 thou/uL (1.20-3.40); #Monocytes 0.8 thou/uL (0.11-0.59); #Neutrophils 7.2 thou/uL (1.40-6.50); %Basophils 0.2 % (0.0-1.0); %Eosinophils 1.2 % (0.0-10.0); %Lymphocytes 7.8 % (21.0-51.0); %Monocytes 8.8 % (0.0-10.0); Hemoglobin 8.7 g/dL (14.0-18.0); Mean Corpuscular HGB CONC 32.6 g/dL (32.0-36.0); Mean Corpuscular Hemoglobin 31.8 pg (27.0-31.0); Mean Corpuscular Volume 97.6 fL (78.0-98.0); Mean Platelet Volume 7.9 fL (7.4-10.4); Platelet Count 160 thou/uL (130-400); Red Blood Cell (RBC) Count 2.74 mill/uL (4.70-6.10); White Blood Cell (WBC) Count 8.8 thou/uL (4.8-10.8)
[2019-03-09 06:23] LABS: Anion Gap 10 mmol/L (10-20); BUN (Urea Nitrogen) 50 mg/dL (8.4-25.7); Calc. Creatinine Clearance 62 mL/min (70-130); Calcium 8.6 mg/dL (7.8-10.44); Carbon Dioxide 34 mmol/L (23-31); Chloride 99 mmol/L (98-107); Estimated GFR-MDRD 68; Glucose 99 mg/dL (83-110); Phosphorus 3.4 mg/dL (2.3-4.7); Potassium 3.8 mmol/L (3.5-5.1); Sodium 139 mmol/L (136-145)
[2019-03-09] MEDS: Budesonide 0.5 MG/2 ML NEB INH SCH (06:46)
[2019-03-09] MEDS: Mometasone/Formoterol 120 PUFF INHALER INH SCH (06:46)
[2019-03-09 08:38] LABS: Anion Gap 13 mmol/L (10-20); BUN (Urea Nitrogen) 47 mg/dL (8.4-25.7); Calc. Creatinine Clearance 65 mL/min (70-130); Calcium 8.6 mg/dL (7.8-10.44); Carbon Dioxide 29 mmol/L (23-31); Chloride 101 mmol/L (98-107); Estimated GFR-MDRD 72; Glucose 95 mg/dL (83-110); Magnesium 1.9 mg/dL (1.6-2.6); Phosphorus 3.3 mg/dL (2.3-4.7); Sodium 139 mmol/L (136-145)
--- NOTE | 2019-03-09 08:58 | RAD ---
EXAM: CHEST ONE VIEW HISTORY: Increased oxygen demand. Patient with history of CHF. COMPARISON: 03/06/2019 FINDINGS: Postsurgical changes related to CABG are again noted. A multilead left subclavian AICD device remains in place. Cardiac silhouette does appear mildly enlarged. Pulmonary vasculature is at the upper limits of normal. There is persistent elevation of the right hemidiaphragm. There is blunting of the lateral costophrenic angles bilaterally which may be related to tiny bilateral pleural effusions versus pleural and parenchymal scarring. Stable linear densities are seen at the left lung base which could be related to atelectasis versus mild scarring. There is no consolidation seen. Degenerative changes are again seen spine. Vascular calcifications are seen in the thoracic aorta. There has been no significant interval change from the prior study. IMPRESSION: 1. Cardiomegaly with pulmonary vasculature at the upper limits of normal. 2. Blunting bilateral costophrenic angles stable from prior study which may be related to small bilat eral pleural effusions versus pleural and parenchymal scarring. 3. Persistent elevation right hemidiaphragm. 4. Linear densities left lung base also noted on prior study which could be related to mild scarring versus atelectasis.
[2019-03-09] MEDS: Senokot S 8.6-50 MG TAB PO SCH (10:25)
[2019-03-09] MEDS: Rivaroxaban 15 MG TAB PO SCH (10:25)
[2019-03-09] MEDS: Escitalopram Oxalate 10 mg Tablet PO SCH (10:26)
[2019-03-09] MEDS: Ferrous Sulfate 325 MG TAB PO SCH (10:26)
[2019-03-09] MEDS: Polyethylene Glycol 3350 17 GM Packet PO SCH (10:26)
[2019-03-09] MEDS: Ascorbic Acid 500 mg Chewable Tablet PO SCH (10:26)
[2019-03-09 11:57] VITALS: TEMP 97.7
--- NOTE | 2019-03-09 12:27 | PRG ---
DATE OF SERVICE: 03/09/2019 SUBJECTIVE: An 83-year-old male, hospital day 6, status post mechanical fall with right iliac wing fracture that is non operative. He continues to experience delirium. This morning, he is resting in his room and no new overnight events. He continues to work with physical and occupational therapy. OBJECTIVE: VITAL SIGNS: Blood pressure 144/82, temperature 97.4, pulse 108, respiratory rate 18, SpO2 of 96% on 2 L nasal cannula. GENERAL: Elderly gentleman, resting in bed. Oriented to self. NECK: Supple. Trachea midline. RESPIRATORY: Normal respiratory effort. Wearing nasal cannula. Equal chest rise. CARDIAC: No peripheral edema. EXTREMITIES: Wearing SCDs on bilateral lower extremities. ABDOMEN: Nondistended. LABORATORY DATA: Sodium 139, potassium 4, creatinine 0.99, phosphorus 3.3, magnesium 1.9. BNP 1015.5. DIAGNOSTICS: There is a chest x-ray, 03/09/2019 at 0746, cardiomegaly with pulmonary vasculature at the upper limits of normal. Blunting bilateral costophrenic angles, stable from prior exam, which maybe related to small bilateral pleural effusions versus pleural and parenchymal scarring. Persistent elevation of right hemidiaphragm. Linear densities at the left lung base also noted on prior study, which could be related to mild scarring versus atelectasis. IMPRESSION: 1. Status post fall from standing, possible syncopal episode. 2. Comminuted right iliac wing fracture, nonoperative. 3. Hyponatremia, resolved. 4. Chronic obstructive pulmonary disease in acute exacerbation. 5. Hyperkalemia, resolved. 6. Acute on chronic kidney disease, resolved, at baseline. 7. Heart failure with reduced ejection fraction. 8. Pacemaker with defibrillator. 9. Renal cancer status post right nephrectomy. 10. Coronary artery disease. 11. History of deep vein thrombosis, on Xarelto. 12. History of inferior vena cava filter placed in 2017. 13. History of coronary artery bypass graft. 14. Normocytic anemia, status post 1 unit packed red blood cells. PLAN: Continue supportive care. The patient's CT yesterday was normal. His confusion is likely a result of delirium. We will continue to encourage family to be present in the room and have windows open during the daytime and minimize interruptions at night. Physical and occupational, continue to work with him. We will discuss the discontinuation of spironolactone with the patient's PCP. Pulmonology is following for treatment of COPD exacerbation. Case management is following for placement in [facility]. This patient was seen and evaluated by Dr. Cuadra during morning rounds. Job ID: [id number]
[2019-03-09 14:44] VITALS: BP 148/77
--- NOTE | 2019-03-09 14:47 | DIS ---
DATE OF ADMISSION: 03/03/2019 DATE OF DISCHARGE: 03/09/2019 ADMISSION DIAGNOSES: 1. Status post mechanical fall, on Xarelto. 2. Comminuted right iliac wing fracture. 3. Hyponatremia. 4. Hyperkalemia. 5. Acute on chronic kidney disease. 6. Chronic obstructive pulmonary disease exacerbation. DISCHARGE DIAGNOSES: 1. Status post mechanical fall, on Xarelto. 2. Comminuted right iliac wing fracture. 3. Hyponatremia. 4. Hyperkalemia. 5. Acute on chronic kidney disease. 6. Chronic obstructive pulmonary disease exacerbation. CONSULTING PHYSICIANS: 1. Dr. Rowan of Orthopedic Surgery. 2. Dr. Harris of pulmonology. PROCEDURES: None. HOSPITAL COURSE: The patient is an 83-year-old male who presented to the emergency department after a mechanical fall, on Xarelto. We did not have a loss of consciousness. He was worked up and was found to have a comminuted right iliac wing fracture, hyponatremia, hyperkalemia, acute on chronic kidney disease, and COPD exacerbation. He was admitted to telemetry under the trauma service, and Dr. Rowan of Orthopedic Surgery was consulted. Upon evaluation, it was determined that the patient is to have nonoperative management and is weightbearing as tolerated with a followup in 1 month. The patient is noncompliant with wearing his oxygen at home and was having a mild COPD exacerbation. He does see Dr. Harris who was consulted. Dr. Harris added Pulmicort to the patient's regimen and discontinued the steroids. His spironolactone was also held for hyperkalemia after the patient's received Kayexalate for 2 days. His potassium did return to normal levels. Spironolactone was restarted, and the patient's primary care physician was contacted to let them know about the concerns with the patient's potassium. They did request to follow up with the patient in a week and now, those orders were placed in the patient's discharge information. The patient was also hyponatremic and after some free water restriction, the patient's sodium did recover to normal levels. He worked with Physical and Occupational Therapy as well as Speech Language Pathology, who recommended a mechanical soft diet. He was restarted on his home Xarelto. Ultimately, he was discharged to acute rehab with a plan that he will be able to eventually go back home. DISCHARGE DISPOSITION: Acute rehab. DISCHARGE CONDITION: Satisfactory. DISCHARGE PHYSICAL EXAMINATION: VITAL SIGNS: Temperature 97.7, pulse 96, respirations 16, oxygen saturation 96% on room air, and blood pressure 142/69. GENERAL: Elderly male, sitting up in bed with no signs of acute distress. RESPIRATORY: Equal chest rise and fall. Clear breath sounds bilaterally. No signs of acute respiratory distress. CARDIAC: Regular rate and rhythm. No murmurs, gallops, or rubs. GASTROINTESTINAL: Abdomen is soft, nontender, nondistended. EXTREMITIES: 2+ pulses in all extremities. No significant swelling noted. DISCHARGE INSTRUCTIONS: The patient was discharged to rehab facility. He is weightbearing as tolerated in all extremities. His activity is as tolerated. He has Ensure Clear b.i.d. as well as a regular diet. He is to receive physical and occupational therapy. He has oxygen via nasal cannula. He is to use a walker, and he can have BiPAP at night, but can refuse if he likes. DISCHARGE MEDICATIONS: Include: 1. Tylenol. 2. Vitamin C. 3. Lipitor. 4. Pulmicort. 5. Flexeril. 6. Lexapro. 7. Ferrous sulfate. 8. DuoNebs. 9. Melatonin. 10. Dulera. 11. MiraLAX. 12. Xarelto. 13. Senokot-S. 14. Tramadol. 15. Spironolactone. FOLLOWUP APPOINTMENTS: 1. He is to follow up with his primary care physician in 1 week to make sure he does not become hyperkalemic again since spirolactone was restarted. 2. He is also to follow up with Dr. Rowan in 3 to 4 weeks with additional x-rays. This is merely a summary of the patient's hospitalization. For full details, please see his chart in its entirety. Job ID: [id number]
--- NOTE | 2019-03-09 15:45 | PRG ---
DATE OF SERVICE: 03/09/2019 SUBJECTIVE: Noe Gordon has been transferred to rehab. He is confused. He was awake all day yesterday and all night and has been sleeping a lot today. OBJECTIVE: VITAL SIGNS: He is afebrile, heart rate is 102, respiratory rate is 20, oximetry is 96% on 2 L, blood pressure 140/77. LUNGS: Clear. HEART: Regular rhythm. ABDOMEN: Soft. EXTREMITIES: Without edema. LABORATORY DATA: White count 8.8, hemoglobin 8.7, platelets 160. Electrolytes are normal except for BUN of 47. IMPRESSION: Status post fall with no central nervous system trauma and no documentable rhythm disturbances via defibrillator interrogation. Chest radiograph was ordered today. He has an elevation of his right hemidiaphragm. Compared to his 03/03 film, there appears to be a density in his left suprahilar area. This was seen on the film in June of 2018. The is right around the end of the first rib on the left. It is unclear whether or not this is a real density or not. Need to follow up with film with me once he gets out of a rehab. I explained to the that I feel that he has dementia and his encephalopathy in this admission is related to his dementia with decompensation in the hospital. Hopefully, he will stabilize. His code status definitely needs to be addressed. I will be happy to see him as an outpatient once he gets out of the rehab as I have explained to his . Job ID: [id number]
[2019-03-10] MEDS ORDERED: Spironolactone 25 MG TAB PO SCH (08:00)
== END 2019-03-09 15:07 | DRG 682 ==
LOC: ERS 18:08 → 2NO 21:41 → SURG A 03-07 10:45
PROVIDERS: ADMIT Specialist; ATTEND Specialist
DX: N17.9 Acute kidney failure, unspecified (principal); J96.21 Acute and chronic respiratory failure with hypoxia; G92 Toxic encephalopathy; S32.391A Other fracture of right ilium, initial encounter for closed fracture; J44.1 Chronic obstructive pulmonary disease with (acute) exacerbation; E87.1 Hypo-osmolality and hyponatremia; I13.0 Hypertensive heart and chronic kidney disease with heart failure and stage 1 through stage 4 chronic kidney disease, or unspecified chronic kidney disease; I50.22 Chronic systolic (congestive) heart failure; E87.5 Hyperkalemia; R29.6 Repeated falls; N18.3 Chronic kidney disease, stage 3 (moderate); I25.10 Atherosclerotic heart disease of native coronary artery without angina pectoris; W18.30XA Fall on same level, unspecified, initial encounter; Z86.711 Personal history of pulmonary embolism; Z95.1 Presence of aortocoronary bypass graft; Z88.5 Allergy status to narcotic agent; Z87.891 Personal history of nicotine dependence; Z91.041 Radiographic dye allergy status; Z79.01 Long term (current) use of anticoagulants; Z91.19 Patient's noncompliance with other medical treatment and regimen; Z86.718 Personal history of other venous thrombosis and embolism; Z95.828 Presence of other vascular implants and grafts; Z95.810 Presence of automatic (implantable) cardiac defibrillator; Z85.528 Personal history of other malignant neoplasm of kidney; Z90.5 Acquired absence of kidney; T38.0X5A Adverse effect of glucocorticoids and synthetic analogues, initial encounter
CPT/HCPCS: 36415; 36416; 36430; 70450; 71045; 72170; 72192; 80048; 80053; 81001; 82550; 82553; 82570; 82805; 83690; 83735; 83880; 84100; 84300; 84484; 85025; 85610; 85730; 86850; 86900; 86901; 93005; 93010; 93306; 94640; 96365; 96375; 96376; G0390; J0131; J0461; J1815; J1940; J2270; J2405; J2920; J3010; J3475; J3490; J7050; J7620; J7626; P9016

== ENCOUNTER 2019-10-30 08:01 | Outpatient (CLI) | payer MEDICARE, BC ==
[2019-10-30 17:22] LABS: Prothrombin Time 22.4 SEC (12.0-14.7)
[2019-10-30 17:23] LABS: Hemoglobin 12.7 g/dL (14.0-18.0); Mean Corpuscular HGB CONC 33.2 g/dL (32.0-36.0); Mean Corpuscular Hemoglobin 34.7 pg (27.0-31.0); Mean Platelet Volume 8.5 fL (7.4-10.4); PTT 41.3 SEC (22.9-36.1); Platelet Count 175 thou/uL (130-400); RBC Distribution Width 13.8 % (11.5-14.5); Red Blood Cell (RBC) Count 3.66 mill/uL (4.70-6.10); White Blood Cell (WBC) Count 11.1 thou/uL (4.8-10.8)
[2019-10-30 17:32] LABS: Anion Gap 12 mmol/L (10-20); BUN (Urea Nitrogen) 32 mg/dL (8.4-25.7); Calc. Creatinine Clearance 0 mL/min (70-130); Calcium 9.3 mg/dL (7.8-10.44); Carbon Dioxide 30 mmol/L (23-31); Chloride 99 mmol/L (98-107); Estimated GFR-MDRD 52; Glucose 93 mg/dL (83-110); Sodium 136 mmol/L (136-145)
[2019-10-30 17:42] LABS: Bacteria/HPF None Seen HPF (None Seen); Bilirubin Negative (Negative); Blood, Urine Negative (Negative); Clarity Clear (Clear); Glucose, Urine (Dipstick) Normal (Negative); Leukocyte Negative Leu/uL (Negative); Nitrite Negative (Negative); Protein, Urine (Dipstick) 10 mg/dL (Neg-Trace); RBC/HPF 0-3 HPF (0-3); Squamous Epithelial 0-3 HPF (0-3); WBC/HPF 0-3 HPF (0-3)
--- NOTE | 2019-10-31 15:04 | EKG ---
Test Reason : Blood Pressure : / mmHG Vent. Rate : 089 BPM Atrial Rate : 089 BPM P-R Int : 148 ms QRS Dur : 138 ms QT Int : 402 ms P-R-T Axes : 000 025 009 degrees QTc Int : 489 ms Electronic ventricular pacemaker When compared with ECG of 09-MAR-2019 08:50, (Unconfirmed) Vent. rate has decreased BY 17 BPM Confirmed by CHUCK PENA ([id number]) on 10/31/2019 3:03:49 PM Referred By: BETSY Confirmed By:CHUCK PENA
== END 2019-10-30 08:02 | disposition home or self-care (01) ==
LOC: LABBT 08:01
PROVIDERS: ATTEND Urology
DX: Z01.818 Encounter for other preprocedural examination (principal); D49.4 Neoplasm of unspecified behavior of bladder
CPT/HCPCS: 80048; 81001; 85027; 85610; 85730; 87086; 93005; 93010

== ENCOUNTER 2019-11-06 06:16 | Day surgery (SDC) | payer MEDICARE, BC ==
[2019-10-30 15:59] VITALS: BMI 24.4
[2019-11-06] MEDS ORDERED: Hydrocortisone Sod Succ/PF 100 mg/2 ml Vial ONE (07:03)
[2019-11-06] MEDS ORDERED: Ioversol 68 % 50 ML VIAL ONE ×2 (07:10→07:11)
[2019-11-06] MEDS ORDERED: Ipratropium Bromide 2.5 ml Neb ONE (07:29)
[2019-11-06] MEDS ORDERED: Fentanyl 100 MCG/2 ML VIAL ONE (07:47)
[2019-11-06] MEDS ORDERED: PHENYLEPHRINE-NS 100 MCG/ML 10 ML SYRINGE ONE (09:38)
[2019-11-06] MEDS ORDERED: PROPOFOL 200 MG/20 ML VIAL ONE (09:38)
[2019-11-06] MEDS ORDERED: Lidocaine 1% PF 5 ML VIAL ONE (09:38)
--- NOTE | 2019-11-06 10:01 | RAD ---
RETROGRADE PYELOGRAM: Date: 11/06/2019 HISTORY: Kidney stones FINDINGS: Four portable fluoroscopic spot images are presented for interpretation. There is contrast injected into the left ureter. No overt calculus or narrowing or mass. There was co mplete drainage. IMPRESSION: Unremarkable left-sided retrograde pyelogram. POS: TPC
--- NOTE | 2019-11-06 14:23 | OP ---
DATE OF PROCEDURE: 11/06/2019 PREOPERATIVE DIAGNOSIS: Bladder tumors. POSTOPERATIVE DIAGNOSIS: Bladder tumors. PROCEDURES PERFORMED: 1. Cystoscopy. 2. Urethral dilatation. 3. Left retrograde pyelogram. 4. Bladder biopsy and fulguration. ANESTHETIC: General. ESTIMATED BLOOD LOSS: Minimal. 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 I did not see any other abnormal areas. Left retrograde study was normal. He had some meatal stenosis, requiring dilatation with Brenda sounds up to 26-Ivorian. An 18-Ivorian Souza catheter was left indwelling. DESCRIPTION OF PROCEDURE: After obtaining written and verbal consent from the patient after receiving some Solu-Cortef because of an iodine allergy and also some antibiotics, he was taken to the operating suite. He was placed in a supine position on the treatment table. PlexiPulses were placed on his lower extremities and turned on. He was given a general anesthetic and oral obturator intubation. He was placed in the dorsal lithotomy position, sterilely prepped and draped. The fluoroscopy unit was placed in good position and the KUB was taken. Cystoscopy was attempted with a 22-Ivorian sheath. Because of some meatal stenosis, it could not be passed. He was then gently dilated up to 26-Ivorian with [place] sounds and a 22-Ivorian sheath with 30-degree lens and video camera and monitor was passed through the male urethra into the bladder. The bladder was filled and emptied and inspected with both 30 and 70-degree lens with the findings above. Next, a cone-tipped catheter was advanced into the left ureteral orifice and contrast was injected in a retrograde manner, filling out the entire ureter and collecting system. There was no obvious abnormality noted. The catheter was removed and the ureter was allowed to drain and drained well. We then used a cold cup biopsy to biopsy some of the papillary tumors around the left ureteral orifice and some on the trigone. We then brought in the 24-Ivorian resectoscope. It was passed with the visual obturator, well lubricated through the male urethra into the bladder, and this was used to cauterize the biopsy site as well as to destroy the small other papillary tumors that were in the same region. At this point, there was good hemostasis. The instruments were removed. A Souza catheter was placed. The balloon was inflated. It was hand irrigated. It was clear. He was taken out of the dorsal lithotomy position, awakened and extubated, and taken by stretcher to the recovery room. Job ID: [id number]
== END 2019-11-06 11:34 | disposition home or self-care (01) ==
LOC: SDC 06:16
PROVIDERS: ATTEND Urology
PROC: 0T5B8ZZ Destruction of Bladder, Via Natural or Artificial Opening Endoscopic (ICD-10-PCS; principal; 2019-11-06)
PROC: BT1F1ZZ Fluoroscopy of Left Kidney, Ureter and Bladder using Low Osmolar Contrast (ICD-10-PCS; 2019-11-06)
DX: C67.6 Malignant neoplasm of ureteric orifice (principal); D49.4 Neoplasm of unspecified behavior of bladder; N35.911 Unspecified urethral stricture, male, meatal; E78.5 Hyperlipidemia, unspecified; I25.10 Atherosclerotic heart disease of native coronary artery without angina pectoris; I50.9 Heart failure, unspecified; J44.9 Chronic obstructive pulmonary disease, unspecified; Z79.01 Long term (current) use of anticoagulants; Z79.899 Other long term (current) drug therapy; Z91.041 Radiographic dye allergy status; Z95.1 Presence of aortocoronary bypass graft; Z95.810 Presence of automatic (implantable) cardiac defibrillator
CPT/HCPCS: 74420; 88305; 88342; J0690; J1720; J2001; J2704; J3010; J7620; Q9967